=== PATIENT | male | born 1950 | race Caucasian/White ===

== ENCOUNTER 2023-12-08 16:15 | Outpatient (RCR) | payer MEDICARE, OTHER, SELFPAY | END 2023-12-08 23:59 | disposition home or self-care (01) | LOC: RPT 16:15 | PROVIDERS: ATTENDING PHYSICIAN Physician Assistant Medical | DX: R29.898 Other symptoms and signs involving the musculoskeletal system (principal); Z73.6 Limitation of activities due to disability; M54.50 Low back pain, unspecified; M54.6 Pain in thoracic spine | CPT/HCPCS: 97010; 97110; 97112; 97140; 97163; 97530 ==

== ENCOUNTER 2024-01-12 14:07 | Outpatient (RCR) | payer MEDICARE, OTHER, SELFPAY | END 2024-01-12 23:59 | disposition home or self-care (01) | LOC: RPT 14:07 | PROVIDERS: ATTENDING PHYSICIAN Physician Assistant Medical | DX: M54.50 Low back pain, unspecified (principal); M54.6 Pain in thoracic spine; R29.898 Other symptoms and signs involving the musculoskeletal system; Z73.6 Limitation of activities due to disability | CPT/HCPCS: 97010; 97110; 97112; 97140; 97530 ==

== ENCOUNTER 2024-01-14 13:46 | Outpatient (RCR) | payer MEDICARE, OTHER, SELFPAY | END 2024-01-14 23:59 | disposition home or self-care (01) | LOC: RPT 13:46 | PROVIDERS: ATTENDING PHYSICIAN Physician Assistant Medical | DX: R29.898 Other symptoms and signs involving the musculoskeletal system (principal); Z73.6 Limitation of activities due to disability; M54.6 Pain in thoracic spine | CPT/HCPCS: 97010; 97110; 97112; 97530 ==

== ENCOUNTER → 2024-03-01 16:53 | Outpatient (REF) | payer MEDICARE, OTHER, SELFPAY | LOC: RAD 16:53 | PROVIDERS: ATTENDING PHYSICIAN Internal Medicine Critical Care Medicine; FAMILY PHYSICIAN Physician Assistant Medical | DX: R06.09 Other forms of dyspnea (principal) | CPT/HCPCS: 71046 ==

== ENCOUNTER 2024-05-05 08:18 | Day surgery (SDC) | payer MEDICARE, OTHER, SELFPAY ==
[2024-05-05] VITALS (13 sets, daily range): BP systolic 116–151; BP diastolic 54–85; BMI 26.8
[2024-05-05 08:46] LABS: Hematocrit 42.1 % (39.0-52.0); Hemoglobin 14.3 g/dL (13.0-18.0); Mean Corpuscular Hgb 30.9 pg (27.0-31.0); Mean Corpuscular Volume 90.9 fL (80.0-94.0); Mean Platelet Volume 9.8 fL (7.4-10.4); Platelet Count 202 10^3/uL (130-400); Red Blood Cell Count 4.63 10^6/uL (4.70-6.10); Red Cell Dist. Width 12.4 % (11.5-14.5); White Blood Cell Count 5.2 10^3/uL (4.8-10.8)
[2024-05-05 09:04] LABS: Glucose - Point of Care 219 mg/dl (70-99)
--- NOTE | 2024-05-05 10:51 | ITS.CL.CATH ---
Document Photographer - Catheterization
Cardiac Catheterization
Procedure Report:
CARDIAC CATHETERIZATION REPORT
Date of Procedure: 05/05/2024
Referring: Miguel A Kerr MD, PhD
Indication: Worsening exertional angina in patient with known CAD
�
HEMODYNAMIC DATA
AO: 124/74
LV: 124/10
�
LEFT VENTRICULOGRAPHY: Normal left ventricular wall motion with EF 63%
�
CORONARY ANGIOGRAPHY
Dominance: Right
Left Main: Normal
LAD: The LAD is moderately calcified. There is 99% mid LAD stenosis with JEAN grade II flow due to competitive flow from the RCA to the distal LAD. The small to medium sized third diagonal branch has diffuse moderate disease
Circumflex: Trivial luminal disease
RCA: Large dominant mildly calcified vessel with focal 90% mid stenosis. The RPDA and RPL are both very large with no significant disease
�
Closure Device: None-the procedure was performed via the right radial artery. The Barrie's test was normal prior to the procedure.
�
Radiation (mGy): 216
DAP (cm2.Gy): 18.1
Fluoroscopy time: 6.9 minutes
�
CONCLUSIONS
1:�Normal left ventricular function with EF 63%
2:�Multivessel CAD as described-options include CABG x 2 (LAD, RPDA) versus multivessel PCI. Given the presence of diabetes mellitus, I believe CABG is a better option for this patient. Will ask CTS to provide an opinion and if patient amenable
scheduled for CABG. If after discussion with CTS the patient prefers PCI we can arrange multivessel PCI
�
�
Copy to: Miguel A Kerr MD, PhD, Rosie Kirk PA-C
�
Tab De Dios MD, [facility], [facility]
--- NOTE | 2024-05-05 14:08 | PTCARENOTE ---
Tonya Turner Machine Operator set up for PAT for blood work and CXR.
[2024-05-05 14:37] LABS: Glycohemoglobin (HgbA1c) 7.8 % (4.0-5.6)
== END 2024-05-05 14:08 | disposition home or self-care (01) ==
LOC: CATH 08:18
PROVIDERS: ATTENDING PHYSICIAN Internal Medicine Cardiovascular Disease; FAMILY PHYSICIAN Physician Assistant Medical; OTHER PHYSICIAN Internal Medicine
DX: I25.118 Atherosclerotic heart disease of native coronary artery with other forms of angina pectoris (principal); I35.8 Other nonrheumatic aortic valve disorders; E11.9 Type 2 diabetes mellitus without complications; I10 Essential (primary) hypertension; E78.00 Pure hypercholesterolemia, unspecified; Z79.82 Long term (current) use of aspirin; Z79.84 Long term (current) use of oral hypoglycemic drugs
CPT/HCPCS: 82962; 83036; 85027; 93458; C1894; Q9967

== ENCOUNTER → 2024-05-09 10:26 | Outpatient (REF) | payer MEDICARE, OTHER, SELFPAY | LOC: RCS 10:26 | PROVIDERS: ATTENDING PHYSICIAN Thoracic Surgery (Cardiothoracic Vascular Surgery); FAMILY PHYSICIAN Physician Assistant Medical | DX: I25.10 Atherosclerotic heart disease of native coronary artery without angina pectoris (principal); Z01.818 Encounter for other preprocedural examination | CPT/HCPCS: 71250; 93306 ==

== ENCOUNTER 2024-05-12 05:30 | Inpatient (IN) | payer MEDICARE, OTHER, SELFPAY ==
[2024-05-10 12:23] VITALS: BMI 27.2
[2024-05-10 13:25] LABS: INR 0.88; PT 12.4 Sec (11.4-14.6)
[2024-05-10 13:26] LABS: APTT 27.7 Sec (23.4-35.0)
[2024-05-10 13:30] LABS: % Immature Granulocytes 0.4 % (0-0.5); % Lymphocytes 16.9 % (20.5-51.1); % Monocytes 8.7 % (1.7-9.3); Absolute Basophils 0.1 10^3/uL (0-0.2); Absolute Eosinophils 0.2 10^3/uL (0-0.7); Absolute Lymphocytes 1.1 10^3/uL (1.2-3.4); Absolute Monocytes 0.6 10^3/uL (0.1-0.6); Absolute Neutrophils 4.7 10^3/uL (1.4-6.5); Hematocrit 40.1 % (39.0-52.0); Hemoglobin 14.3 g/dL (13.0-18.0); Mean Corp Hgb Conc. 35.7 g/dL (33.0-37.0); Mean Corpuscular Hgb 31.8 pg (27.0-31.0); Mean Corpuscular Volume 89.1 fL (80.0-94.0); Mean Platelet Volume 10.6 fL (7.4-10.4); Nucleated Red Blood Cells % 0 % (-); Platelet Count 222 10^3/uL (130-400); Red Cell Dist. Width 12.3 % (11.5-14.5); White Blood Cell Count 6.7 10^3/uL (4.8-10.8)
[2024-05-10 13:30] LABS: Urine Albumin Negative (Neg - Trace); Urine Bilirubin Negative (Negative); Urine Character Clear (Clear); Urine Color Yellow; Urine Glucose 1+ (Negative); Urine Ketone Negative (Negative); Urine Leukocyte Negative (Negative); Urine Nitrite Negative (Negative); Urine Occult Blood Negative (Negative); Urine Specific Gravity 1.015 (<1.030); Urine Urobilinogen Negative (Neg - 1+)
--- NOTE | 2024-05-10 13:31 | CM ---
Met with and Mrs. Aguirre in [facility]. He states prior to admission he resides with his spouse in a two story home with four steps to enter. He states he has to go up a full flight of steps to get to bedroom/full bathroom. He states he only has
the bathroom upstairs. He states prior to admission he was independent with ambulation and adls. He states he does not have any DME in the home. He states he has a prescription plan with [facility]. His spouse states she will be home
to assist in his care when he goes home The discharge plan is to return home with his spouse and a home visit by the Transitional Care Nurse when medically stable.
We reviewed pre-op and post-op routines. We reviewed the shower instructions. He has the soap, written instructions and the Cardiothoracic Surgery Educational Booklet. We also reviewed restrictions including sternal precautions and driving
restrictions. We discussed a home visit by the Transitional Care Nurse. He is agreeable to a home visit. The plan is for CABG on Sunday, May 12, 2024.
[2024-05-10 15:47] LABS: ALT (SGPT) 40 U/L (0-50); AST (SGOT) 29 U/L (17-59); Albumin 3.9 g/dl (3.5-5.0); Alkaline Phosphatase 66 U/L (38-126); Blood Urea Nitrogen 16 mg/dl (9-20); Calcium 8.9 mg/dl (8.4-10.2); Carbon Dioxide 27 mmol/L (22-30); Chloride 100 mmol/L (98-107); Direct Bilirubin 0.1 mg/dl (0.0-0.4); Estimated Creatinine Clearance 82 ml/min; Glucose 158 mg/dl (70-99); Potassium 4.4 mmol/L (3.5-5.1); Sodium 137 mmol/L (135-145); Total Bilirubin 0.3 mg/dl (0.2-1.3); Total Protein 6.3 g/dl (6.3-8.2); eGFR > 60.00
[2024-05-12] VITALS (17 sets, daily range): BP systolic 95–154; BP diastolic 55–83; BMI 24.2
[2024-05-12] MEDS: LOPRESSOR 25 MG PO (05:56)
[2024-05-12] MEDS: MAGNESIUM OXIDE 500 MG PO (05:56)
[2024-05-12] MEDS: PROTONIX 40 MG PO (05:56)
[2024-05-12] MEDS: BACTROBAN 2% OINTMENT 1 APPLIC NASAL ×2 (05:57→20:28)
--- NOTE | 2024-05-12 06:10 | PTCARENOTE ---
Pt admitted to room 2263. Pt confirmed 2 CHG showers at home and NPO status. Pt oriented to room. VS and weight obtained. Pt clipped, prepped, and wiped w/ CHG wipes. Admission questions completed. Home medications confirmed. ABO drawn and sent.
Pre-op meds administered. Pt Right BP 151/76 and Left BP 123/79. CTPA and Dr. Rivera aware. Pt took his vitamin D, fish oil, coenzyme Q10, multivitamin, and lisinopril on 05/10. CTPA aware. at bedside. Call rose within reach.
--- NOTE | 2024-05-12 06:19 | W.CVOR.SURPR ---
CVOR Surgeon Immed Pre Op
-
I have examined this patient prior to performance of the scheduled procedure.
The patient's condition is unchanged from the time of the dictated/written History and
Physical and the patient is able to undergo the scheduled procedure.
CABG x 2, ANJANA Clip, will plate sternum as well given his active lifestyle with hiking
[2024-05-12 07:26] LABS: ACT+ - POC 101 Seconds (82-134)
[2024-05-12 08:03] LABS: Urine Albumin Negative (Neg - Trace); Urine Bilirubin Negative (Negative); Urine Character Clear (Clear); Urine Color Yellow; Urine Glucose 2+ (Negative); Urine Ketone Negative (Negative); Urine Leukocyte Negative (Negative); Urine Nitrite Negative (Negative); Urine Occult Blood Negative (Negative); Urine Urobilinogen Negative (Neg - 1+)
[2024-05-12 09:02] LABS: ACT+ - POC 517 Seconds (82-134)
[2024-05-12 09:20] LABS: B.E. - POC 1.2 mmol/L; Glucose - POC 231 mg/dl (70-99); HCO3 - POC 25 mmol/L (21-28); Hematocrit - POC 37 % PCV (42-52); Hemodilution- POC No; Hemoglobin Calculated - POC 12.6; Ionized Calcium - POC 1.16 mmol/L (1.15-1.33); O2 Saturation %Calculated-POC 99.9 % (94-98); PCO2 - POC 38 mmHg (35-48); PO2 - POC 244 mmHg (83-108); POC Comment BASELINE; Potassium - POC 4.3 mmol/L (3.5-5.1); Sodium - POC 137 mmol/L (136-145); pH - POC 7.43 (7.35-7.45)
--- NOTE | 2024-05-12 09:21 | CM ---
Reviewed chart. Mr Aguirre is in the operating room today. Prior to admission he resides with his spouse in a two story home with four steps to enter. He has a full flight of steps to get to bedroom/full bathroom. He only has the one bathroom in the
home. Prior to admission he was independent with ambulation and adls. He does not have any DME in the home. He has a prescription plan with [employer] [facility]. His spouse will be home to assist in his care if needed. Medical work-up in
progress. The discharge plan is to return home with his spouse and a home visit by the Transitional Care Nurse when medically stable.
[2024-05-12 09:32] LABS: ACT+ - POC 605 Seconds (82-134)
[2024-05-12 09:46] LABS: B.E. - POC 3.3 mmol/L; Glucose - POC 206 mg/dl (70-99); HCO3 - POC 27 mmol/L (21-28); Hematocrit - POC 32 % PCV (42-52); Hemodilution- POC Yes; Hemoglobin Calculated - POC 10.8; Ionized Calcium - POC 0.98 mmol/L (1.15-1.33); PCO2 - POC 38 mmHg (35-48); PO2 - POC 386 mmHg (83-108); POC Comment CPB; Potassium - POC 5.6 mmol/L (3.5-5.1); Sodium - POC 136 mmol/L (136-145); pH - POC 7.46 (7.35-7.45)
[2024-05-12 09:55] LABS: ACT+ - POC 509 Seconds (82-134)
[2024-05-12 10:10] LABS: Glucose - POC 195 mg/dl (70-99); HCO3 - POC 26 mmol/L (21-28); Hematocrit - POC 34 % PCV (42-52); Hemodilution- POC Yes; Hemoglobin Calculated - POC 11.7; Ionized Calcium - POC 1.05 mmol/L (1.15-1.33); O2 Saturation %Calculated-POC 99.7 % (94-98); PCO2 - POC 39 mmHg (35-48); PO2 - POC 184 mmHg (83-108); POC Comment WARM; Potassium - POC 4.4 mmol/L (3.5-5.1); Sodium - POC 140 mmol/L (136-145); pH - POC 7.44 (7.35-7.45)
[2024-05-12 10:14] LABS: ACT+ - POC 104 Seconds (82-134)
[2024-05-12 10:18] LABS: B.E. - POC -1.1 mmol/L; Glucose - POC 156 mg/dl (70-99); HCO3 - POC 23 mmol/L (21-28); Hematocrit - POC 29 % PCV (42-52); Hemodilution- POC Yes; Hemoglobin Calculated - POC 9.9; Ionized Calcium - POC 1.32 mmol/L (1.15-1.33); O2 Saturation %Calculated-POC 99.9 % (94-98); PCO2 - POC 35 mmHg (35-48); PO2 - POC 270 mmHg (83-108); POC Comment POST; Potassium - POC 3.7 mmol/L (3.5-5.1); Sodium - POC 139 mmol/L (136-145); pH - POC 7.42 (7.35-7.45)
--- NOTE | 2024-05-12 11:08 | W.PN.CT.SURG ---
CT Surgery Operative Note
-
CARDIAC SURGERY OPERATIVE REPORT
Preoperative Diagnosis: Multivessel Coronary Artery Disease with near total Occlusion of the LAD and Diabetic
Postoperative Diagnosis: Same
Procedure(s) Performed:
1. Status trauma with aortic and right atrial cannulation
2. Left atrial appendage exclusion [35 mm clip]
3. Endoscopic harvest of the right lower extremity for vein
4. Coronary artery bypass grafting x 2 (In situ FLEMING to LAD, Ao to RSVG to RPDA)
5. Transesophageal echocardiography
6. Placement temporary ventricular pacing wire
7. Rigid sternal fixation (3 square screws with 14 mm screws x 12) and regional block by anesthesia
Date of Surgery: 05/12/2024
Comorbidities:
1. Multivessel coronary disease with near total occlusion of the LAD
2. Hyperlipidemia
3. Hypertension
4. Diabetes mellitus type 2 insulin-dependent
5. Glaucoma
6. Arthritis
7. Gout
8. Hard of hearing
Attending Surgeon: Luis Rivera MD, MS
Assistants: Shae Villasenor PA-C (present and necessary to first officer and flight instructor, endoscopic vein harvest, retraction, suction, exposure, suture management, and wound closure under my direction)
Anesthesiology: Caden Bah MD and Bettina Ray CRNA
Scrub and Circulating RNs: Cecile Atwood RN, Trung Babcock RN
Benefits Representative: Laverne Dawson CCP
Anesthesia: GETA
EBL: per perfusion records
Products: None, 1 bowl of cell saver scavenged from the field
CPB Time: 50 minutes
Aortic Cross Clamp Time: 44 minutes
Indication(s) for Procedures: This is a 74-year-old male who is otherwise healthy having angina equivalent chest tightness of the upper chest and neck. He was found to have multivessel coronary disease with a chronic total occlusion of the RCA with
collateralization. Given his diabetic status, he was referred to my office for consideration of coronary revascularization. We discussed his STS risk and the details of surgery. Shared decision making to move forward with coronary
revascularization.
Conduit(s) Quality:
FLEMING -good/taken as a thin pedicle, overall small size with good flow
RSVG -excellent/uniform in size, minimal thickness, minimal varicosities
Target(s) Quality:
RCA/PDA -excellent/large sized target accommodating a 1.75 to 2.0 mm probe, excellent flow with test dosing of antegrade revealing approximately 70 to 80 cc a minute of flow at a pressure of 80 mmHg. Flow probe assessment with excellent numbers and
low PI
LAD -small, average to marginal/atretic target barely able to accommodate a 1.0 mm probe, there is good visual flow in the LAD territory post revascularization and decent numbers on flow probe with acceptable PI.
Findings: His left ventricular ejection fraction preoperatively was normal at 60% with no regional wall motion abnormalities. Following surgery his EF remained the same and there was no new regional wall motion abnormalities. The FLEMING was harvested
in a thin pedicle fashion. Following bypass grafting, test dose cardioplegia was given down each distal and confirmed patency and hemostasis. Each distal was probed both proximally and distally to confirm disease and patency, respectively. Flow
probe was used to assess the grafts and found to be acceptable. His left atrial appendage was verified to be free of any thrombus or debris preoperatively and totally occlusive postoperatively. No [place] was placed. No inotropic support was
required. No blood products were transfused. He was sinus bradycardia following surgery.
Description of Procedure: The patient was taken to the operating room. Their identity and procedure to be performed were verified and they were positioned supine on the operating table. Induction via general anesthesia with endotracheal intubation
was performed and central venous access and arterial monitoring were inserted. A preoperative transesophageal echocardiogram was performed to assess cardiac function and valvular function. The patient was then prepped and draped from chin to feet in
a sterile fashion. A preoperative time-out was performed with all members of the team present. A midline chest incision was performed along with median sternotomy. Simultaneous endoscopic access of the right lower extremity for saphenous vein
harvest was obtained along with administration of an initial 5,000 units of IV heparin. A RulTract sternal retractor was positioned to exposure the left internal mammary bed. The mammary was harvested and found to have good flow. A bulldog clamp was
applied to the distal end of the mammary after dividing it. It was wrapped in a papaverine soaked RayTec and replaced back into the left hemithorax. The RulTract was exchanged for a median sternal retractor. The innominate vein was isolated. Full
heparinization was given (a total of 32,000 units). We created a pericardial well. The aortic cannulation site was chosen where it was soft, pliable, and free of calcium. Cannulation was performed with an arterial cannula in the ascending aorta and
a triple-stage venous cannula through the right atrial appendage. The arterial cannula line had an appropriate bounce and correlating pressures with test dosing. Next, a root vent/antegrade cannula was inserted into the ascending aorta. The ACT was
confirmed to be over 400 and retrograde autologous priming was performed before commencing cardiopulmonary bypass. The pulmonary artery was away from the aorta to facilitate a clamp site. The aortic cross-clamp was placed after decreasing
the flow on the bypass and mean arterial pressure. A total of 1000L initial dose of antegrade Del-Nido cardioplegia solution was given and planned for re-dosing every 75 minutes as necessary. There was rapid electro-mechanical arrest of the heart at
300 cc of cardioplegia. The left ventricle was observed for distention on echocardiogram and manual palpation. Cold slush was placed into a sponge and topically on the RV while we systemically cooled to 34 degrees centigrade. Once arrested, the
heart was then medialized left atrial appendage was clipped with a 35 mm device.
I positioned the heart to expose the distal right coronary at the posterior descending artery. A douglas blade was used to expose the coronary and perform the arteriotomy. Coronary Puentes scissors were used to enlarge the incision. The saphenous vein
was trimmed and beveled to an appropriate size. The distal anastomosis was performed using 7-0 prolene in an end-to-side fashion. Antegrade cardioplegia was administered into the graft. Appropriate hemostasis and flow were confirmed. A suitable
target on the mid/distal left anterior descending was identified. We dissected and prepared the distal target in a similar fashion. It was an extremely small and atretic vessel. We retrieved the FLEMING from the chest and created a pericardial
opening while being cognizant of the phrenic nerve to facilitate the course of the mammary. The distal end of the mammary was prepped and beveled to size. We verified orientation and length of the JAVIER and found brisk flow. An end-to-side anastomosis
was created with a 8-0 prolene secured with a micro core knot device. We temporarily released the bulldog clamp on the mammary to inspect flow. Perfusion to the LAD territory was visualized and hemostasis was confirmed. The bull clamp was replaced
on the mammary. The heart was filled and the root was distended with antegrade cardioplegia to make final assessment of graft length and orientation. We created 1 aortotomy using a #11 blade then a 4.0mm aortic punch. The proximal anastomoses were
created in an end-to-side fashion using 6-0 prolene. At the the same time, we re-warmed to 36.5 degrees centigrade. The bulldog clamp was removed from the mammary. Temporary bipolar ventricular pacing wires were placed on the base of the right
ventricle. The patient was placed in a Trendelenburg position and flows on bypass were lowered. The aortic cross clamp was removed and flows were slowly brought back up. A 30-gauge needle was used to de-air the vein grafts. All bypass grafts were
inspected and were free from kinking or twisting. The distal and proximal anastomoses appeared hemostatic. Once transesophageal echocardiography appeared satisfactory for de-airing, the flows were temporarily lowered for root vent removal. After
verifying acceptable parameters, we initiated weaning from cardiopulmonary bypass. Once we were off cardiopulmonary bypass, the venous cannula was clamped and removed. A test dose of protamine was administered and the patient was monitored for any
adverse reaction before resuming protamine. Once half of the protamine dose was delivered, pump suckers were turned off and the systolic blood pressure was lowered for aortic decannulation. The aortic cannula was removed and pursestrings were tied
down. All cannulation sites were oversewn with a 4-0 prolene. The mammary bed was inspected and hemostasis was confirmed. Once the mediastinum was hemostatic, 19Fr Zhen drain was placed in the left pleural cavity and two 24Fr Zhen drains were
placed within the pericardium. The sternum was approximated with 4 #7 single and 3 #8 double stainless steel wires. 3 sternal plates were also applied. Fascia was approximated with #1 vicryl suture. The subcutaneous, dermis and epidermis were
closed in layers in a running fashion. The skin wound was cleansed and dressed.
All instrument, sponge, and needle counts were confirmed to be correct x 2 at the end of the operation. The patient was transferred to the cardiac intensive care unit in critical but stable condition.
I, Dr. Luis Rivera, was present, scrubbed for, and performed all critical elements of this procedure.
Luis Rivera MD, MS
Cardiothoracic Surgeon
[facility]
This operative dictation was created using the [employer] dictation system. Please excuse any grammatical, typographical, or 'sound alike' errors
--- NOTE | 2024-05-12 11:15 | W.PN.UPDATE ---
Update Note
Progress Note Update
74 year old male electively admitted 05/12 fo rCABG due to twp vessel CAD with preserved EF.
IV fluids:
Crystalloid:�
U.O.:�
UF:�
Blood:� none
Wires:� bipolar v-wire
Inotropes:�
Pressors:�
Sedatives:�
�
NEURO: sedated on Precedex, pupils +2mm B/L
RESP: #8OT @24cm> 500/40%/14/5. Lungs clear B/L. 2 mediastinal (0cc on arrival) and L pleural (5cc on arrival) chest tubes to -20cm suction. +continuous air leak from pleural tube. Sanguineous drainage
CV: RRR +S1, S2, no S3, no�rub, no murmur. Dermabond to median sternotomy. RIJ cordis intact
ABD: round, soft, no BS
EXT: no edema, +2/4 DP pulses B/L, no femoral bruit, RLE LADAN wrap intact; left radial A-line intact
: [place] with clear yellow urine
�
A/P: POD #0 s/p CABG x 2 FLEMING-LAD; SVG-RPDA, left atrial appendage exclusion number 35 mm clip. Rigid sternal fixation
JAYE: EF�
- wean and extubate
- Left pleural chest tube insertion site reinforced, connections secure>air leak persists. Monitor for PTX
# CAD
- will require ASA/Plavix, statin (Crestor), beta-jonatan
# HTN
- IV Cardene, transition to ACEi when tolerating orals
�
# acute surgical blood loss anemia-expected
- trend CBC
�
# T2DM (A1C 7.8)
- insulin infusion x 48h
- resume home Metformin and glipizide on POD #2
- may benefit from SGLT2i
�
# Hyperlipidemia
- resume�[place] 3
# Glaucoma
- continue eye drops
[2024-05-12 11:17] LABS: Glucose - Point of Care 139 mg/dl (70-99)
[2024-05-12 11:25] LABS: B.E. -0.7 mmol/L; HCO3 24.2 mmol/L (21-28); Ionized Calcium 1.23 mMOL/L (1.15-1.33); O2 Saturation % 98.1 % (94-98); PCO2 40 mmHg (35-48); PO2 105 mmHg (83-108); Sodium 135 mMOL/L (136-145); pH 7.39 (7.35-7.45)
[2024-05-12 11:28] LABS: Mixed Venous O2 Saturation 70.1 %
[2024-05-12] MEDS: DILAUDID 0.5 MG IV (11:33)
[2024-05-12] MEDS: NOVOLOG FLEXPEN SC ×3 (11:33→14:51)
[2024-05-12] MEDS: NSS 500 IV (11:33)
[2024-05-12 11:34] LABS: Hematocrit 34.4 % (39.0-52.0); Hemoglobin 11.9 g/dL (13.0-18.0); INR 1.24; PT 15.9 Sec (11.4-14.6); Platelet Count 174 10^3/uL (130-400)
[2024-05-12] MEDS: NEURONTIN PO ×2 (11:34→15:00)
[2024-05-12] MEDS: ANCEF 10 IV ×2 (11:34)
[2024-05-12 11:35] LABS: APTT 28.7 Sec (23.4-35.0)
--- NOTE | 2024-05-12 11:36 | PN.DE.MGMTRT ---
Insulin Management
- -
05/12/2024: Diabetes management Consult
74 year old male electively admitted 05/12 fo CABG due to two vessel CAD with preserved EF.
Now s/p CABG x2. PMH: MVCAD, HTN, HLD, T2DM, Glaucoma, Arthritis, Gout and Hard of hearing.
was taking Metformin 500mg BID and Glipizide 2.5mg daily. A1C 7.8%, Cr 0.7, eGFR >60
Currently on Glycemic protocol x 48h post-op for optimal glucose control.
Will follow and resume OP regimen at increased dose of Metformin 1000 mg BID and glipizide 2.5mg BID in addition to Farxiga 10mg daily
Diabetes History
- -
Type of Diabetes: 2
Pre-Admission Diabetes Regimen
Insulin Pump Settings
IP Diabetes Regimen
05/12/24
11:07
POC Glucose 139 H
Patient Education
--- NOTE | 2024-05-12 11:39 | PTCARENOTE ---
Received pt from [facility], Intubated and sedated on the vent. Settings per anesthesia. SIMV 40 % Rate 14 tv 500 psv 5 peep 5 spo2 98%. # 8 ETT at 24 cm . SB on monitor 50's. Epicardial V wire inplace. Chest tubes x 3 to - 20 cm suction. Air leak
present in Lt pleural CT. Dressing taken down by CT VOLTAGE INSPECTOR and reinforced, air leak remains. Abdomen soft with hypoactive bowl sounds. charles draining clear yellow urine. RT leg Scout wrap intact. Pressure dressing to RT upper thigh. DP pulses
palpable. RT IJ cordis with slick intact. Lt radial A line transducing. Lines leveled, recalibrated and flushed. Drips infusing on hand off as follows, Levophed, Insulin, Precedex. See flow sheet for totals.
[2024-05-12 11:47] LABS: Blood Urea Nitrogen 12 mg/dl (9-20); Estimated Creatinine Clearance 91 ml/min; Glucose 133 mg/dl (70-99); Magnesium 3.6 mg/dl (1.6-2.3)
[2024-05-12 11:59] LABS: Glucose - Point of Care 200 mg/dl (70-99)
--- NOTE | 2024-05-12 12:50 | PTCARENOTE ---
Awakes spontaneously, following commands, but still drowsy. not over breathing vent at this time,
[2024-05-12] MEDS: CRESTOR PO (12:55)
[2024-05-12] MEDS: VITAMIN D3 (cholecalciferol) PO (12:55)
[2024-05-12 13:00] LABS: Glucose - Point of Care 146 mg/dl (70-99)
--- NOTE | 2024-05-12 13:31 | PTCARENOTE ---
1300 Mediastinal chest tube atrium now with continuous air leak noted. CT PA notified and in to assess.
--- NOTE | 2024-05-12 13:53 | CON.INTV ---
Consultation
Consultation Request
Date/Time Consultation Requested: 05/12/24
Date/Time Consultation Performed: 05/12/24
Performing Provider: Rolando
Reason for Consultation: CVICU
Medical History
-
History of Present Illness:
Patient is a 74-year-old male with previous history of diabetes, hypertension, hyperlipidemia with recent complaints of chest tightness and burning sensation, evaluated as an outpatient for CAD. Had cardiac catheterization demonstrating significant
proximal LAD disease and proximal lesion in RCA. Underwent elective CABG x 2 on 05/12/2024 and sent to CVICU for further management.
Denies prior known history of lung disease, reported non-smoker.
Past Medical History
Past Medical History: Other (see list below)
Social History
Tobacco: Non-smoker
Alcohol: None
Drug: None
Family History
Family History: Reviewed & Not Pertinent
Allergies / Home Medications
Allergies
Allergy/AdvReac Type Severity Reaction Status Date / Time
Penicillins Allergy Unknown Verified 05/08/24 10:43
pollen extracts Allergy seasonal Verified 05/08/24 10:43
allergies
Home Medications
�Medication �Instructions �Recorded �Confirmed �Last Taken �Type
aspirin 81 mg tablet,delayed 81 mg PO DAILY 03/26/17 05/12/24 05/11/24 History
release
coenzyme Q10 100 mg capsule 100 mg PO DAILY 03/26/17 05/12/24 05/10/24 History
lisinopril 10 mg tablet 10 mg PO DAILY 03/26/17 05/12/24 05/10/24 History
metformin 500 mg tablet,extended 500 mg PO BID 03/26/17 05/12/24 05/11/24 History
release 24hr (osmotic)
phhylnep-rtb-lndgi 200 mcg-lycop 1 ea PO DAILY 03/26/17 05/12/24 05/10/24 History
175 mcg-lutei 250 mcg-herb 178
tablet (Justus Multivitamin For Men)
omega 0-uvj-tkh-fish oil 300 2 ea PO BID 03/26/17 05/12/24 05/10/24 History
mg-1,000 mg capsule (Fish Oil)
cholecalciferol (vitamin D3) 50 50 mcg PO DAILY 05/05/24 05/12/24 05/10/24 History
mcg (2,000 unit) capsule (Vitamin
D3)
glipizide 2.5 mg tablet, extended 2.5 mg PO DAILY 05/05/24 05/12/24 05/11/24 History
release 24 hr
latanoprost 0.005 % eye drops 1 drp ophthalmic (eye) QPM 05/05/24 05/12/24 05/11/24 History
metoprolol succinate 25 mg 12.5 mg PO QPM 05/05/24 05/12/24 05/11/24 History
tablet,extended release 24 hr
nitroglycerin 0.4 mg sublingual 0.4 mg sublingual [id number] PRN 05/05/24 05/08/24 Unknown Rx
tablet chest pain #25 tabs
rosuvastatin 10 mg tablet (Crestor) 20 mg (2 x 10 mg) PO DAILY #0 tabs 05/05/24 05/12/24 05/11/24 Rx
ascorbate calcium-bioflavonoid 1 tab PO DAILY 05/08/24 05/12/24 05/11/24 History
1,000 mg-200 mg tablet (Malini-C
with Bioflavonoids)
magnesium glycinate 1 cap PO BID PRN for leg cramps 05/08/24 05/12/24 05/10/24 History
Review of Systems
-
Unable to Obtain full review of systems at this time due to: Patient Intubation
History Source: Transfer Record
Vitals / Labs / Diagnostic Testing
Vital Signs
Temp Pulse Resp BP Pulse Ox
98.0 F 60 14 102/62 97
05/12/24 13:45 05/12/24 13:00 05/12/24 13:00 05/12/24 13:00 05/12/24 13:00
Lab Data
05/12/24 11:01
Laboratory Results
05/12/24
11:01
PT 15.9 H
INR 1.24
APTT 28.7
pH 7.39
pCO2 40
pO2 105
HCO3 24.2
O2 Delivery Level
Microbiology
05/10/24 12:33 Nose MRSA Screen - Final
No Methicillin Resistant Staphylococcus aureus isolated.
Diagnostic Testing:
Physical Exam
-
HEENT: Normocephalic, Anicteric and Moist Mucous Membranes
Cardiovascular: S1/S2 and Regular Rhythm
Respiratory: Clear, Non-Labored Respirations and Other (ETT/chest tubes)
GI: Soft, Non Distended and Non Tender
Neurology: Awake, Alert and Other (intubated, nonverbal, can nod yes/no)
Skin: Warm, Dry and Good Color
General: Comfortable and Other (NAD)
Assessment
-
Patient is a 74-year-old male with previous history of diabetes, hypertension, hyperlipidemia with recent complaints of chest tightness and burning sensation, evaluated as an outpatient for CAD. Had cardiac catheterization demonstrating significant
proximal LAD disease and proximal lesion in RCA. Underwent elective CABG x 2 on 05/12/2024 and sent to CVICU for further management.
CAD s/p CABx 2 05/12/24
Perioperative mechanical ventilation
Postop anemia, mild
Hyperglycemia
Conditions present prior to admission
Hypertension
Hyperlipidemia
Diabetes type 2
CAD
Seasonal allergies
Gallstones
Glaucoma
Back pain
Prior history of 7 rib fractures and punctured lung in 2015
Urinary frequency
Arthritis
Gout
Hard of hearing with bilateral hearing aids
Bladder repair
Plan
S/p cab POD #0
Titrate off pressors per protocol
ECHO reviewed with normal function
PA catheter readings reviewed
Management of chest tubes per primary service
Intubated/sedated, initiate SAT when able
Pain control
RASS goal of 0 to -1
Intubated for procedure, SBT trial when patient able to spontaneously breath
Current vent settings: CPAP wean, tolerating
ABG(s) reviewed/adequate
CXR with no obvious opacities/infiltrates, ETT in good position, lines/tubes in place
Extubate per protocol
Maintain supplement oxygen as needed
No prior history of pulmonary disease
No prior PFTs for review
Can add nebulizers if needed
Aspiration precautions
Encouraged incentive spirometry, OOB/ambulation/early mobility
Advance diet as tolerated following extubation
GI prophylaxis if indicated for mechanical ventilation >48 hours
Monitor critical I/O's
Avendano/chest tube output
Hb/platelets postoperatively stable
Trend CBC for now
Can transfuse if indicated for Hb <7, plt <50 in surgical patients
DVT prophylaxis including SCDs
Insulin protocol initiated and ongoing
DM history noted
Transition to SQ/off as indicated per team
We will follow
Diagnostic Data
Chest X-Ray: 05/12/24- Stable appearance of the support lines and tubes. No discrete pneumothorax.
05/10/24- No acute cardiopulmonary process.
CT Scan: CHEST 05/09/24- 1. No acute findings within the chest.
2. Normal caliber thoracic aorta. Mild to moderate calcified plaque within the distal arch and descending thoracic aorta.
3. Extensive coronary artery calcific indications.
4. Multiple old, healed right rib fractures.
Echo: 05/09/24- Normal biventricular size and systolic function without regional wall motion abnormality. Aortic sclerosis without stenosis. Compared to previous echo 10/07/21, the liver finding was no evaluated as it was on the prior study.
PFT's:
Reports and relevant images were personally reviewed.
Critical Care time 50 mins -- The patient is admitted for acute critical illness for the treatment of vital organ failure and/or prevention of further life-threatening conditions. Total care includes time spent in review of history, physical exam,
medications, hemodynamic/ventilator parameters, laboratory data, imaging and discussion with house staff, pharmacy, respiratory therapy, front tender, and nursing.
[2024-05-12 13:59] LABS: Glucose - Point of Care 119 mg/dl (70-99)
--- NOTE | 2024-05-12 14:14 | PTCARENOTE ---
Pt awake consistently, able to move all extremities and lift head off pillow, along with follow commands. CPAP trial initiated by RT. Pt washed with CHG wipes at this time , turned and back rubbed with lotion. Pt tolerated w/o issue. Will obtain
ABG per protocol
--- NOTE | 2024-05-12 14:38 | W.PN.UPDATE ---
Update Note
Progress Note Update
Pleural and Mediastinal drainage containers changed with resolution of air leaks.
--- NOTE | 2024-05-12 14:43 | PTCARENOTE ---
Both chest tube atruims changed out by CT PA, all suction tubing also exchanged at this time. No air leaks present after change out.
[2024-05-12] MEDS: TYLENOL PO (14:50)
[2024-05-12 14:52] LABS: Ionized Calcium 1.16 mMOL/L (1.15-1.33); pH 7.38 (7.35-7.45)
[2024-05-12 14:57] LABS: Hematocrit 38.2 % (39.0-52.0); Hemoglobin 13.3 g/dL (13.0-18.0); Platelet Count 244 10^3/uL (130-400)
[2024-05-12 14:57] LABS: Glucose - Point of Care 118 mg/dl (70-99)
[2024-05-12] MEDS: PACERONE PO (15:00)
[2024-05-12 15:06] LABS: B.E. -0.8 mmol/L; HCO3 24.3 mmol/L (21-28); PCO2 41 mmHg (35-48); PO2 184 mmHg (83-108); Potassium 3.6 mMOL/L (3.5-5.1)
[2024-05-12] MEDS: CALCIUM CHLORIDE 10% SYRINGE 50 MG IV (15:14)
[2024-05-12] MEDS: KCL 50 IV ×2 (15:14→17:58)
[2024-05-12] MEDS: CALCIUM CHLORIDE 10% SYRINGE 50 ML IV (15:14)
--- NOTE | 2024-05-12 15:28 | PTCARENOTE ---
Extubated to 6 L NC, at 1512. Pulse ox 98% Able to preform IS to 1000. updated and at bedside.
[2024-05-12] MEDS: ROXICODONE 5 MG PO ×2 (15:33→22:41)
[2024-05-12] MEDS: LOW STRENGTH ASPIRIN 81 MG PO (15:33)
--- NOTE | 2024-05-12 15:50 | RESPNOTE ---
1510-- extubated to 6 liter NC at this time without complications. SAT 97%, IS done 1250mL
[2024-05-12 16:04] LABS: Glucose - Point of Care 126 mg/dl (70-99)
[2024-05-12] MEDS: DILAUDID 0.25 MG IV ×2 (16:49→20:28)
--- NOTE | 2024-05-12 17:26 | W.PN.CD ---
Addendum entered and electronically signed by Bo Bhatia MD 05/12/24 19:52:
I saw and examined the patient.
The MACHINE CLOTHING MAN's note was reviewed and I agree with the note.
Comment: He is extubated and awake. He has some pain in his shoulders but otherwise feels reasonably well considering everything he went through today. He does have some chest pain when he takes a deep breath. Attributing it to his tubes. On
exam he is awake and alert, regular rate and rhythm normal S1-S2 anteriorly he is clear to auscultation. Sternal wound clean dry and intact. Agree with postoperative care day 0 plan. Will continue to monitor and optimize medical therapy
throughout its course.
Original Note:
Today's Communication / Plan
-
-Close post-op monitoring and care per CVICU/CT surgery protocol
-ASA, statin, BB
-Follow tele, BP's
Impression / Plan
-
74 y/o male (patient of Dr. Kerr) with CAD, hypertension, dyslipidemia, and DM who was recently seen to have multivessel CAD by cath and is now s/p CABG.
Multivessel CAD:
-s/p coronary artery bypass grafting x 2 (In situ FLEMING to LAD, Ao to RSVG to RPDA) and ANJANA exclusion with Dr. Rivera 05/12/24.
-post-op EKG stable in NSR. Tele SR
-CXR: Stable appearance of the support lines and tubes. No discrete pneumothorax.
-CT's, charles in place
-JAYE EF 50%
-ASA, statin, BB
HTN:
-monitor post-op
-on ACEI and BB as OP
DM2:
-on insulin drip post-op
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
Dyslipidemia:
-continue rosuvastatin
Physical Exam
Vital Signs/Labs
Vital Signs
Temp Pulse Resp BP Pulse Ox
99.1 F 76 21 98/55 97
05/12/24 16:52 05/12/24 16:52 05/12/24 16:52 05/12/24 16:00 05/12/24 16:52
05/11/24 05/12/24 05/13/24
06:59 06:59 06:59
Actual Weight 74.2 kg 72.2 kg
05/12/24 14:41
05/12/24 11:01
PT 15.9 Sec (11.4-14.6) H 05/12/24 11:01
INR 1.24 05/12/24 11:01
APTT 28.7 Sec (23.4-35.0) 05/12/24 11:01
Magnesium 3.6 mg/dl (1.6-2.3) H 05/12/24 11:01
Physical Exam
Constitutional: No acute distress
EENT: Anicteric
Cardiovascular: Rhythm & rate is regular
Respiratory: Respiratory effort normal, Lungs clear to auscul. and Other (On O2 by NC)
Neuro/Psych: AO x 3
Other: Skin (midsternal incision site appears well-approximated )
Data Reviewed
-
Date of Service: May 12, 2024
EKG: Tracing Personally Visualized and interpreted (NSR) and Other (SR)
[2024-05-12] MEDS: XALATAN OPHTHALMIC SOLUTION OPHTH (17:55)
[2024-05-12] MEDS: ANCEF 5 IV (17:55)
[2024-05-12 18:02] LABS: Glucose - Point of Care 120 mg/dl (70-99)
[2024-05-12] MEDS: OFIRMEV 100 IV (18:47)
[2024-05-12 20:08] LABS: Glucose - Point of Care 126 mg/dl (70-99)
[2024-05-12] MEDS: SENOKOT-S 1 TABLET PO (20:28)
[2024-05-12] MEDS: ZOFRAN 4 MG IV (20:37)
--- NOTE | 2024-05-12 20:40 | PTCARENOTE ---
Report received from DIONI Ramirez. Walking rounds done. Pt drowsy but awakens easily to voice. Oriented to person, place, purpose, time. Speech clear, moves extremities equally. On 2L/NC. Sats 96-97%. BBS present. Decreased to B bases. CDB encouraged.
Pt in SR, rate 60-70's. L radial A line present. CVP transduced via RIJ cordis/SLIC catheter. For pulse and wound assessments, see flowsheets. R groin puncture site remains soft. Pressure dressing and chris wrap remain intact, dry. PA at bedside to
examine pt. CT x 3. All to suction, -20 cm. No air leak present. Bloody drainage. Q1 hr output checks. Belly soft, nontender. Hypoactive BS x 4. Pt had fleeting nausea after Dilaudid 0.25 mg IV given for B shoulder pain. Zofran 4 mg IV given at
2036. Avendano catheter intact, draining clear, yellow urine. Hourly urine and CT outputs recorded. Glycemic protocol maintained. Ongoing plan of care.
[2024-05-12 21:02] LABS: Glucose - Point of Care 116 mg/dl (70-99)
[2024-05-12 22:17] LABS: Glucose - Point of Care 111 mg/dl (70-99)
[2024-05-12] MEDS: PACERONE 200 MG PO (22:37)
[2024-05-12] MEDS: NEURONTIN 100 MG PO (22:37)
[2024-05-12] MEDS: FLOMAX 0.4 MG PO (23:20)
--- NOTE | 2024-05-12 23:25 | PTCARENOTE ---
Roxicodone 5 mg po given for 6/10 B shoulder pain. Flomax 0.4 mg po given as ordered. Pt remains neuro intact, more awake. Remains in SR. O2 Sats 96-97% on 2L/NC.
[2024-05-12 23:26] LABS: Glucose - Point of Care 111 mg/dl (70-99)
[2024-05-13] VITALS (24 sets, daily range): BP systolic 104–152; BP diastolic 57–94; PULSE 67; O2SAT 97–98; BMI 24.9
[2024-05-13] MEDS: TYLENOL 1000 MG PO ×4 (00:14→22:10)
[2024-05-13 00:19] LABS: Glucose - Point of Care 99 mg/dl (70-99)
--- NOTE | 2024-05-13 00:25 | PTCARENOTE ---
BP via A-line 140's systolic. MAP upper 80's. Cardene gtt started at 2.5 mg/hr. BP down to 110-120's/50's, MAPs 70's. Pt turned onto R side. CDB and IS performed.
[2024-05-13 02:09] LABS: Glucose - Point of Care 116 mg/dl (70-99)
[2024-05-13] MEDS: DILAUDID 0.25 MG IV ×2 (02:22→22:10)
[2024-05-13] MEDS: ANCEF 5 IV ×2 (02:22→10:16)
--- NOTE | 2024-05-13 02:30 | PTCARENOTE ---
Sats 92-93% on 2L/NC. Pt c/o 11/21 B shoulder pain. Dilaudid 0.25 mg IV given. CDB and IS done with pt. O2 increased to 4L/NC. O2 sats increased to 93-94%.
[2024-05-13 03:45] LABS: Glucose - Point of Care 110 mg/dl (70-99)
[2024-05-13 03:57] LABS: Hematocrit 35.1 % (39.0-52.0); Hemoglobin 12.1 g/dL (13.0-18.0); Mean Corp Hgb Conc. 34.5 g/dL (33.0-37.0); Mean Corpuscular Hgb 31.5 pg (27.0-31.0); Mean Corpuscular Volume 91.4 fL (80.0-94.0); Mean Platelet Volume 10.1 fL (7.4-10.4); Platelet Count 186 10^3/uL (130-400); Red Blood Cell Count 3.84 10^6/uL (4.70-6.10); Red Cell Dist. Width 12.7 % (11.5-14.5); White Blood Cell Count 16.3 10^3/uL (4.8-10.8)
[2024-05-13 04:10] LABS: Blood Urea Nitrogen 17 mg/dl (9-20); Calcium 8.5 mg/dl (8.4-10.2); Carbon Dioxide 22 mmol/L (22-30); Chloride 108 mmol/L (98-107); Estimated Creatinine Clearance 80 ml/min; Glucose 107 mg/dl (70-99); Magnesium 2.1 mg/dl (1.6-2.3); Potassium 4.7 mmol/L (3.5-5.1); Sodium 141 mmol/L (135-145); eGFR > 60.00
--- NOTE | 2024-05-13 04:32 | W.PN.CT ---
Today's Communication / Plan
-
-pod #1
-no issues overnight
-drips: Insulin, Cardene 2.5
-CT output: 2 meds 95/180, L pleur 65/160 in 12/24 hrs, no air leak in either CTs
-deline
-continue insulin
-d/c Avendano (gave Flomax x1 for hx urinary retention/frequency/suspected BPH)
-current meds (ASA, Plavix, Lopressor, Amio, Protonix, Crestor, Feosol, Farxiga to start 05/14)
-encourage IS, OOB
Assessment / Plan
-
- s/p CABG x 2 (In situ FLEMING to LAD, Ao to RSVG to RPDA); Left atrial appendage exclusion [35 mm clip] by Dr. Rivera on 05/12/24, pod #1
- intraop JAYE: LVEF 60% pre and postop with no no regional wall motion abnormalities
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
- Hyperlipidemia
- Hypertension
- Diabetes mellitus type 2 insulin-dependent
- Glaucoma
- Arthritis
- Gout
- Hard of hearing
- Urinary frequency, hx bladder repair
- Hx of 7 rib fractures/punctured lung/reduced lung capacity
- Acute postop blood loss anemia - stable without transfusion
- Acute postop atelectasis
- Acute postop hypovolemia with subsequent hypervolemia
- Suspected acute postop pericarditis/+rub
Discussed patient care with: Nursing and Care Team
Subjective
-
Date of Service: May 12, 2024
Objective Data
-
Lab Results
05/12/24 14:41
05/12/24 11:01
PT 15.9 Sec (11.4-14.6) H 05/12/24 11:01
INR 1.24 05/12/24 11:01
APTT 28.7 Sec (23.4-35.0) 05/12/24 11:01
Vital Signs
Vital Signs
Temp Pulse Resp BP Pulse Ox
99.5 F 73 17 128/59 96
05/12/24 20:00 05/12/24 22:37 05/12/24 22:00 05/12/24 22:37 05/12/24 22:00
CT Intake/Output/Weight
05/12/24 05/12/24 05/13/24
06:59 18:59 06:59
Intake Total 409.5 / 503.1 93.6 / 503.1
Output Total 565 / 760 195 / 760
Balance -155.5 / -256.9 -101.4 / -256.9
SaO2: 96
Physical Exam
-
General: Awake and AOx3
Cardiovascular: Regular rate & rhythm, No Murmurs and Rub
Respiratory: Decreased Breath Sounds
Sternum: Stable
Incision: Clean, Dry, Intact and Other (R groin with soft hematoma and chris wrap)
Extremities: No Edema (2+ DPs b/l)
Abdomen: soft, nontender, nondistended, + bowel sounds
Data Reviewed
-
Lab Results: Results Reviewed
Medications: Active Meds Reviewed
Chest X-Ray: Report Reviewed and Image Reviewed
ECG: Report Reviewed and Image Reviewed
[2024-05-13 06:01] LABS: Glucose - Point of Care 104 mg/dl (70-99)
--- NOTE | 2024-05-13 06:06 | PTCARENOTE ---
Slic catheter d/c'ed per order and per protocol. L radial A line d/c'ed per protocol. Avendano d/c'ed at 0600.
[2024-05-13] MEDS: ROXICODONE 5 MG PO ×4 (06:22→20:02)
[2024-05-13] MEDS: NOVOLIN R INSULIN INFUSION 100 IV ×2 (06:28→23:53)
--- NOTE | 2024-05-13 07:09 | PTCARENOTE ---
Pt helped up to chair at 0615 with 2 RNs. Mild dizziness. Normotensive with SBP 130's. Remained in SR in the 80's. Sats 95-96% on 4L/NC. Roxicodone 5 mg and Tylenol 1 GM po given for 6-7/10 sternal and B shoulder pain.
[2024-05-13] MEDS: VITAMIN C 500 MG PO (07:48)
[2024-05-13] MEDS: NEURONTIN 100 MG PO ×3 (07:48→22:09)
[2024-05-13] MEDS: PROTONIX 40 MG PO (07:48)
[2024-05-13] MEDS: LOW STRENGTH ASPIRIN 81 MG PO (07:48)
[2024-05-13] MEDS: PLAVIX 75 MG PO (07:48)
[2024-05-13] MEDS: CRESTOR 20 MG PO (07:49)
[2024-05-13] MEDS: FEOSOL 325 MG PO (07:49)
[2024-05-13] MEDS: LOPRESSOR 12.5 MG PO ×2 (07:49→19:56)
[2024-05-13] MEDS: PACERONE 200 MG PO ×3 (07:49→22:09)
[2024-05-13] MEDS: LIDOCAINE 4% PATCH 1 PATCH TOPICAL (07:49)
[2024-05-13] MEDS: VITAMIN D3 (cholecalciferol) 50 MCG PO (07:49)
[2024-05-13] MEDS: SENOKOT-S 1 TABLET PO ×2 (07:49→20:01)
[2024-05-13] MEDS: BACTROBAN 2% OINTMENT 1 APPLIC NASAL ×2 (07:50→19:56)
[2024-05-13 07:58] LABS: Glucose - Point of Care 133 mg/dl (70-99)
--- NOTE | 2024-05-13 08:00 | PTCARENOTE ---
Assumed care of patient from hypo dipper RN. AAO x 3 sitting up in the chair. SR on monitor. Epicardial wire insulated. 4 L NC pulse ox 94%, IS to 750. Chest tubes x 3 to - 20 cm suction. No air leak or crepitus noted. Abdomen soft and non
tender. Hypoactive bowel sounds noted t/o. States hes passing flatus. Rt groin soft, little tenderness noted on palpation. Rt knee incision c,d,i. Pulses palpable. Sternal insicion well approximated with surgical glue. Insulin drip per
glycemic protocol. Plan for day discussed.
--- NOTE | 2024-05-13 09:06 | W.PN.INTV ---
Today's Communication / Plan
Recommendations
Doing well post extubation, no complaints
Off pressors, chest tube discontinuation per team
Remains on insulin IV protocol, transition to SQ
Can likely transfer to tele once off gtts
Otherwise encouraged OOB, PT/IS
Assessment
-
Patient is a 74-year-old male with previous history of diabetes, hypertension, hyperlipidemia with recent complaints of chest tightness and burning sensation, evaluated as an outpatient for CAD. Had cardiac catheterization demonstrating significant
proximal LAD disease and proximal lesion in RCA. Underwent elective CABG x 2 on 05/12/2024 and sent to CVICU for further management.
CAD s/p CABx 2 05/12/24
Perioperative mechanical ventilation
Postop anemia, mild
Hyperglycemia
Conditions present prior to admission
Hypertension
Hyperlipidemia
Diabetes type 2
CAD
Seasonal allergies
Gallstones
Glaucoma
Back pain
Prior history of 7 rib fractures and punctured lung in 2015
Urinary frequency
Arthritis
Gout
Hard of hearing with bilateral hearing aids
Bladder repair
Plan
S/p cab POD #1
Off pressors per protocol
ECHO reviewed with normal function
Management of chest tubes per primary service
Pain control
RASS goal of 0 to -1
Intubated for procedure, extubated and doing well
ABG(s) reviewed/adequate
CXR with no sign changes
Maintain supplement oxygen as needed
No prior history of pulmonary disease
No prior PFTs for review
Can add nebulizers if needed
Aspiration precautions
Encouraged incentive spirometry, OOB/ambulation/early mobility
Advance diet as tolerated following extubation
GI prophylaxis if indicated for mechanical ventilation >48 hours
Monitor critical I/O's
Avendano/chest tube output
Hb/platelets postoperatively stable
Trend CBC for now
Can transfuse if indicated for Hb <7, plt <50 in surgical patients
DVT prophylaxis including SCDs
Insulin protocol initiated and ongoing
DM history noted
Transition to SQ/off as indicated per team
Diagnostic Data
Chest X-Ray: 05/12/24- Stable appearance of the support lines and tubes. No discrete pneumothorax.
05/10/24- No acute cardiopulmonary process.
CT Scan: CHEST 05/09/24- 1. No acute findings within the chest.
2. Normal caliber thoracic aorta. Mild to moderate calcified plaque within the distal arch and descending thoracic aorta.
3. Extensive coronary artery calcific indications.
4. Multiple old, healed right rib fractures.
Echo: 05/09/24- Normal biventricular size and systolic function without regional wall motion abnormality. Aortic sclerosis without stenosis. Compared to previous echo 10/07/21, the liver finding was no evaluated as it was on the prior study.
PFT's:
Reports and relevant images were personally reviewed.
Critical Care time 31 mins -- The patient is admitted for acute critical illness for the treatment of vital organ failure and/or prevention of further life-threatening conditions. Total care includes time spent in review of history, physical exam,
medications, hemodynamic/ventilator parameters, laboratory data, imaging and discussion with house staff, pharmacy, respiratory therapy, oil speculator, and nursing.
Subjective Dataa
Subjective Data
Date of Service:
Date of Service: May 13, 2024
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
Subjective:
Doing well, extubated and tolerated overnight
No new complaints
Remains on insulin gtt
Objective Data
Data Reviewed
Vital Signs / I&O / Oxygen:
Vital Signs
Temp Pulse Resp BP Pulse Ox
97.6 F 78 15 122/59 94
05/13/24 07:38 05/13/24 07:38 05/13/24 07:38 05/13/24 07:00 05/13/24 08:30
Intake and Output
05/12/24 05/13/24 05/14/24
06:59 06:59 06:59
Intake Total 727.1 / 727.1 370 / 370
Output Total 1105 / 1105
Balance -377.9 / -377.9 340 / 340
SaO2 [SIMV] 98
SaO2 94
Nasal Cannula flow liters per 4
minute
Physical Exam
General: Comfortable and Other (NAD)
HEENT: Normocephalic, Anicteric and Moist Mucous Membranes
Cardiovascular: S1-S2 and Regular Rhythm
Respiratory: Clear, Non-Labored Respirations and Chest Tube
GI: Soft, Non Distended and Non Tender
Neurology: Awake, Alert, Oriented and No Motor Deficits
Skin: Warm, Dry and Good Color
Labs/Micro/Reports
Lab Data
05/13/24 03:37
05/13/24 03:37
Laboratory Results
05/12/24 05/12/24
11: 14:41
PT 15.9 H
INR 1.24
APTT 28.7
pH 7.39 7.38
pCO2 40 41
pO2 105 184 H
HCO3 24.2 24.3
O2 Delivery Level
Microbiology
05/10/24 12:33 Nose MRSA Screen - Final
No Methicillin Resistant Staphylococcus aureus isolated.
[2024-05-13] MEDS: NOVOLOG FLEXPEN SC ×2 (09:35→12:16)
--- NOTE | 2024-05-13 09:35 | PTCARENOTE ---
Lt pleural chest tube removed as per order. Pt tolerated w/o issue. resting in bed after.
[2024-05-13] MEDS: NSS IV (10:16)
[2024-05-13 10:20] LABS: Glucose - Point of Care 113 mg/dl (70-99)
[2024-05-13 11:55] LABS: Glucose - Point of Care 83 mg/dl (70-99)
--- NOTE | 2024-05-13 12:17 | PTCARENOTE ---
Napping intermittently, pain well managed with Roxycodone. Oxygen lowered to 2 L pulse ox 97%. Assist x 1 oob to chair. Rt leg Scout removed. Rt groin soft and non tender on palpation. VSS. Assessment unchanged from prior.
--- NOTE | 2024-05-13 12:59 | PTCARENOTE ---
Pt with no void after 6 hours charles removal. Denies urge to void. Bladder scanned per protocol. Scanned for 80 ml. PO intake encouraged. CT SHANK SKINNER notified.
[2024-05-13] MEDS: FLEXERIL 5 MG PO (13:11)
[2024-05-13 14:22] LABS: Glucose - Point of Care 155 mg/dl (70-99)
[2024-05-13 16:26] LABS: Glucose - Point of Care 122 mg/dl (70-99)
--- NOTE | 2024-05-13 16:37 | PTCARENOTE ---
Pt remains w/o void at this time. Re bladder scanned at this time for [address] RECORD PRODUCER notified. Pt pain well managed at present. VSS. Assessment unchanged from prior./
[2024-05-13 17:17] LABS: Glucose - Point of Care 116 mg/dl (70-99)
[2024-05-13] MEDS: NOVOLOG FLEXPEN 4 UNITS SC (17:20)
[2024-05-13] MEDS: XALATAN OPHTHALMIC SOLUTION 1 DROP OPHTH (17:50)
[2024-05-13 18:35] LABS: Glucose - Point of Care 134 mg/dl (70-99)
[2024-05-13 20:11] LABS: Glucose - Point of Care 99 mg/dl (70-99)
--- NOTE | 2024-05-13 20:30 | PTCARENOTE ---
Patient received OOB in chair. Patient A+A+Ox3. No neurological deficits noted. Patient assisted to bed. No c/o headache, dizziness or lightheadedness. O2 2L via NC. SpO2 98%. Two chest tubes - Mediastinal x2 - Intact and patent - 35ml
serosanguineous drainage - No air leak. Chest tube dressing intact. Sinus Rhythm. Heart rate 60's. Blood pressure 142/67 ( 89). V-Wire insulated. No c/o chest pain, pressure or discomfort. Normoactive bowel sounds. No BM. No c/o nausea. No
vomiting. No urge to void at this time. Patient with no c/o back or flank pain. Sternal incision intact - Surgical adhesive - Open to air. Right groin puncture site intact. Right knee incision - Surgical adhesive - Open to air. Positive,
palpable pulses. Right I.J. Cordis. Insulin gtt - Glycemic Protocol. Assessment as documented.
[2024-05-13 22:02] LABS: Glucose - Point of Care 115 mg/dl (70-99)
--- NOTE | 2024-05-13 22:30 | PTCARENOTE ---
Patient voided 200 ml lula urine. Patient resting in bed. Assessment/Interventions as documented.
[2024-05-14] VITALS (20 sets, daily range): BP systolic 128–159; BP diastolic 56–76; BMI 25.2
[2024-05-14 00:01] LABS: Glucose - Point of Care 98 mg/dl (70-99)
[2024-05-14 02:07] LABS: Glucose - Point of Care 111 mg/dl (70-99)
[2024-05-14 04:06] LABS: Glucose - Point of Care 80 mg/dl (70-99)
[2024-05-14] MEDS: NSS 500 IV (04:10)
[2024-05-14] MEDS: ROXICODONE 5 MG PO ×2 (04:15→20:08)
--- NOTE | 2024-05-14 04:30 | PTCARENOTE ---
Patient A+A+Ox3. No neurological deficits noted. Patient voided 200 ml lula urine. [facility] bath and linens changed. Standing scale weight 75.2 kg. Patient back to bed. Assessment/Interventions as documented.
[2024-05-14 04:45] LABS: Hematocrit 33.2 % (39.0-52.0); Hemoglobin 11.4 g/dL (13.0-18.0); Mean Corp Hgb Conc. 34.3 g/dL (33.0-37.0); Mean Corpuscular Hgb 32.2 pg (27.0-31.0); Mean Corpuscular Volume 93.8 fL (80.0-94.0); Mean Platelet Volume 10.3 fL (7.4-10.4); Platelet Count 176 10^3/uL (130-400); Red Blood Cell Count 3.54 10^6/uL (4.70-6.10); Red Cell Dist. Width 12.7 % (11.5-14.5); White Blood Cell Count 13.6 10^3/uL (4.8-10.8)
[2024-05-14] MEDS: TYLENOL 1000 MG PO ×3 (06:00→22:27)
[2024-05-14 06:19] LABS: Blood Urea Nitrogen 19 mg/dl (9-20); Calcium 8.3 mg/dl (8.4-10.2); Carbon Dioxide 27 mmol/L (22-30); Chloride 101 mmol/L (98-107); Estimated Creatinine Clearance 80 ml/min; Glucose 71 mg/dl (70-99); Magnesium 1.9 mg/dl (1.6-2.3); Potassium 4.3 mmol/L (3.5-5.1); Sodium 134 mmol/L (135-145); eGFR > 60.00
[2024-05-14 06:19] LABS: Glucose - Point of Care 128 mg/dl (70-99)
--- NOTE | 2024-05-14 06:29 | W.PN.CT ---
Today's Communication / Plan
-
-pod #2
-no issues overnight
-CT output: 2 meds 75/175 in 06/[address] out
-d/c Romana (gave Flomax x1 for hx urinary retention/frequency/suspected BPH)
-current meds (ASA, Plavix, Lopressor, Amio, Protonix, Crestor, Feosol, Farxiga to start 05/14)
-encourage IS, OOB
Assessment / Plan
-
- s/p CABG x 2 (In situ FLEMING to LAD, Ao to RSVG to RPDA); Left atrial appendage exclusion [35 mm clip] by Dr. Rivera on 05/12/24, pod #2
- intraop JAYE: LVEF 60% pre and postop with no no regional wall motion abnormalities
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
- Hyperlipidemia
- Hypertension
- Diabetes mellitus type 2 insulin-dependent
- Glaucoma
- Arthritis
- Gout
- Hard of hearing
- Urinary frequency, hx bladder repair
- Hx of 7 rib fractures/punctured lung/reduced lung capacity
- Acute postop blood loss anemia - stable without transfusion
- Acute postop atelectasis
- Acute postop hypovolemia with subsequent hypervolemia
- Suspected acute postop pericarditis/+rub
Subjective
-
Date of Service: May 14, 2024
Objective Data
-
Lab Results
05/14/24 04:00
05/14/24 04:00
PT 15.9 Sec (11.4-14.6) H 05/12/24 11:01
INR 1.24 05/12/24 11:01
APTT 28.7 Sec (23.4-35.0) 05/12/24 11:01
Vital Signs
Vital Signs
Temp Pulse Resp BP Pulse Ox
98.7 F 66 16 144/70 95
05/13/24 22:00 05/14/24 06:00 05/13/24 22:00 05/14/24 04:00 05/14/24 04:00
CT Intake/Output/Weight
05/13/24 05/13/24 05/14/24
06:59 18:59 06:59
Intake Total 317.6 / 727.1 1308.6 / 1661.0 352.4 / 1661.0
Output Total 540 / 1105 230 / 495 265 / 495
Balance -222.4 / -377.9 1078.6 / 1166.0 87.4 / 1166.0
SaO2: 95
Physical Exam
-
General: Awake, Oriented and AOx3
Cardiovascular: Regular rate & rhythm, No Murmurs and No Rub
Respiratory: Clear and Decreased Breath Sounds
Sternum: Stable
Incision: Clean, Dry and Intact
Extremities: No Edema
Data Reviewed
-
Lab Results: Results Reviewed
Medications: Active Meds Reviewed
Chest X-Ray: Report Reviewed
ECG: Report Reviewed
--- NOTE | 2024-05-14 06:57 | W.PN.CD ---
Today's Communication / Plan
-
continue post op care as per CT surgery
Chest tube removeal - timing per CT
Follow up ECG
Impression / Plan
-
74 y/o male (patient of Dr. Kerr) with CAD, hypertension, dyslipidemia, and DM who was recently seen to have multivessel CAD by cath and is now s/p CABG.
Multivessel CAD:
-s/p coronary artery bypass grafting x 2 (In situ FLEMING to LAD, Ao to RSVG to RPDA) and ANJANA exclusion with Dr. Rivera 05/12/24.
-JAYE EF 50%
-ASA, statin, BB
- soft rub on exam . can reassess aftre chest tubes removed and can repeat CXR
post op anemia stable hb 11.4
HTN:
-monitor post-op
-on ACEI and BB - resume post op as tolerated
DM2:
-diabetic CLERICAL SUPPORT following
Dyslipidemia:
-continue rosuvastatin
Physical Exam
Vital Signs/Labs
Vital Signs
Temp Pulse Resp BP Pulse Ox
98.6 F 66 16 144/70 95
05/14/24 04:00 05/14/24 06:00 05/14/24 04:00 05/14/24 04:00 05/14/24 06:31
05/12/24 05/13/24 05/14/24
06:59 06:59 06:59
Actual Weight 72.2 kg 74.2 kg 75.2 kg
05/14/24 04:00
05/14/24 04:00
PT 15.9 Sec (11.4-14.6) H 05/12/24 11:01
INR 1.24 05/12/24 11:01
APTT 28.7 Sec (23.4-35.0) 05/12/24 11:01
Magnesium 1.9 mg/dl (1.6-2.3) 05/14/24 04:00
Physical Exam
Constitutional: No acute distress
Cardiovascular: Rhythm & rate is regular (soft rub noted. Chest tubes are intact)
Respiratory: Wheeze Absent and Rhonchi Absent
GI: Soft
Neuro/Psych: Alert
Data Reviewed
-
Date of Service: May 14, 2024
Medical Decision Making: Reviewed Test Results
EKG: Report Reviewed by me
Medical Tests (PFT, Pathology etc): Report Reviewed by me
Labs: Labs Reviewed by me
--- NOTE | 2024-05-14 07:30 | PTCARENOTE ---
Assumed care of patient from plant operator/shift supervisor RN. AAO x 3 sitting up in bed. SR on monitor. Epicardial wire insulated. 2 L NC with pulse ox of 95%. IS to 750. Chest tubes to - 20 cm suction. No air leak or crepitus noted. Abdomen soft and non
tender. Passing flatus. Surgical sites well approximated with surgical adhesive present. Pulse palpable. No edema appreciated. Plan for day discussed.
--- NOTE | 2024-05-14 07:31 | W.PN.INTV ---
Today's Communication / Plan
Recommendations
Doing well today, off pressors
Remains on low O2, but IS effort ~500mL, encouraged more effort
OOB, PT encouraged as well
Transitioned off insulin gtt
Transfer to tele per team, we will sign off upon transfer
Assessment
-
Patient is a 74-year-old male with previous history of diabetes, hypertension, hyperlipidemia with recent complaints of chest tightness and burning sensation, evaluated as an outpatient for CAD. Had cardiac catheterization demonstrating significant
proximal LAD disease and proximal lesion in RCA. Underwent elective CABG x 2 on 05/12/2024 and sent to CVICU for further management.
CAD s/p CABx 2 05/12/24
Perioperative mechanical ventilation
Postop anemia, mild
Hyperglycemia
Conditions present prior to admission
Hypertension
Hyperlipidemia
Diabetes type 2
CAD
Seasonal allergies
Gallstones
Glaucoma
Back pain
Prior history of 7 rib fractures and punctured lung in 2015
Urinary frequency
Arthritis
Gout
Hard of hearing with bilateral hearing aids
Bladder repair
Plan
S/p cab POD #2
Off pressors per protocol
ECHO reviewed with normal function
Management of chest tubes per primary service
Pain control
RASS goal of 0 to -1
Intubated for procedure, extubated and doing well
ABG(s) reviewed/adequate
CXR with no sign changes
Maintain supplement oxygen as needed
No prior history of pulmonary disease
No prior PFTs for review
Can add nebulizers if needed
Aspiration precautions
Encouraged incentive spirometry, OOB/ambulation/early mobility
Advance diet as tolerated following extubation
GI prophylaxis if indicated for mechanical ventilation >48 hours
Monitor critical I/O's
Avendano/chest tube output
Hb/platelets postoperatively stable
Trend CBC for now
Can transfuse if indicated for Hb <7, plt <50 in surgical patients
DVT prophylaxis including SCDs
Insulin protocol initiated and ongoing
DM history noted
Transition to SQ/off as indicated per team
Diagnostic Data
Chest X-Ray: 05/12/24- Stable appearance of the support lines and tubes. No discrete pneumothorax.
05/10/24- No acute cardiopulmonary process.
CT Scan: CHEST 05/09/24- 1. No acute findings within the chest.
2. Normal caliber thoracic aorta. Mild to moderate calcified plaque within the distal arch and descending thoracic aorta.
3. Extensive coronary artery calcific indications.
4. Multiple old, healed right rib fractures.
Echo: 05/09/24- Normal biventricular size and systolic function without regional wall motion abnormality. Aortic sclerosis without stenosis. Compared to previous echo 10/07/21, the liver finding was no evaluated as it was on the prior study.
PFT's:
Reports and relevant images were personally reviewed.
Critical Care time 31 mins -- The patient is admitted for acute critical illness for the treatment of vital organ failure and/or prevention of further life-threatening conditions. Total care includes time spent in review of history, physical exam,
medications, hemodynamic/ventilator parameters, laboratory data, imaging and discussion with house staff, pharmacy, respiratory therapy, manufacturing tech, and nursing.
Subjective Dataa
Subjective Data
Date of Service:
Date of Service: May 14, 2024
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
Subjective:
Doing well today, off all gtts
No new complaints
Objective Data
Data Reviewed
Vital Signs / I&O / Oxygen:
Vital Signs
Temp Pulse Resp BP Pulse Ox
98.6 F 66 16 144/70 95
05/14/24 04:00 05/14/24 06:00 05/14/24 04:00 05/14/24 04:00 05/14/24 06:31
Intake and Output
05/13/24 05/14/24 05/15/24
06:59 06:59 06:59
Intake Total 727.1 / 727.1 1695.6 / 1695.6
Output Total 1105 / 1105 715 / 715
Balance -377.9 / -377.9 980.6 / 980.6
SaO2 [SIMV] 98
SaO2 95
Nasal Cannula flow liters per 2
minute
Physical Exam
General: Comfortable and Other (NAD)
HEENT: Normocephalic, Anicteric and Moist Mucous Membranes
Cardiovascular: S1-S2 and Regular Rhythm
Respiratory: Clear and Non-Labored Respirations
GI: Soft, Non Distended and Non Tender
Neurology: Awake, Alert, Oriented and No Motor Deficits
Skin: Warm, Dry and Good Color
Labs/Micro/Reports
Lab Data
05/14/24 04:00
05/14/24 04:00
Microbiology
05/10/24 12:33 Nose MRSA Screen - Final
No Methicillin Resistant Staphylococcus aureus isolated.
--- NOTE | 2024-05-14 07:36 | W.PN.UPDATE ---
Update Note
Progress Note Update
No pacing required since surgery. 1 bipolar ventricular lead removed without difficulty. Vital signs to be monitored every 15 minutes x 4.
--- NOTE | 2024-05-14 07:41 | W.PN.ANS.POP ---
Anesthesia Post Operative
- Anesthesia Post Op Note
Vital Signs Stable-See Nursing Note: Yes
Airway Patent: Yes
Adequate Pain Control: Yes
Change in Mental Status: No
Current Postoperative Nausea & Vomiting: No
Anesthesia Complications: No
General Anesthetic Recall: No
Unplanned Admission: No
Post Op Hydration Adequate: Yes
[2024-05-14] MEDS: VITAMIN D3 (cholecalciferol) 50 MCG PO (07:43)
[2024-05-14] MEDS: LOW STRENGTH ASPIRIN 81 MG PO (07:43)
[2024-05-14] MEDS: LIDOCAINE 4% PATCH 1 PATCH TOPICAL (07:43)
[2024-05-14] MEDS: PROTONIX 40 MG PO (07:43)
[2024-05-14] MEDS: PLAVIX 75 MG PO (07:43)
[2024-05-14] MEDS: PACERONE 200 MG PO ×3 (07:44→22:27)
[2024-05-14] MEDS: NEURONTIN 100 MG PO ×3 (07:44→22:27)
[2024-05-14] MEDS: BACTROBAN 2% OINTMENT 1 APPLIC NASAL ×2 (07:44→20:06)
[2024-05-14] MEDS: SENOKOT-S 1 TABLET PO ×2 (07:44→20:07)
[2024-05-14] MEDS: FARXIGA 10 MG PO (07:44)
[2024-05-14] MEDS: LOPRESSOR 12.5 MG PO ×2 (07:44→20:06)
[2024-05-14] MEDS: VITAMIN C 500 MG PO (07:44)
[2024-05-14] MEDS: CRESTOR 20 MG PO (07:44)
[2024-05-14 07:51] LABS: Glucose - Point of Care 104 mg/dl (70-99)
[2024-05-14] MEDS: NOVOLOG FLEXPEN SC (07:59)
[2024-05-14] MEDS: MUCINEX 1200 MG PO ×2 (08:20→20:07)
--- NOTE | 2024-05-14 08:49 | PTCARENOTE ---
Epicardial wire removed by CT INDUSTRIAL ECOLOGIST, bed rest maintained x 1 hour with Q 15 minute BP per protocol. After 1 hour mediastinal chest tubes removed per order. Pt tolerated w/o issue.
[2024-05-14] MEDS: COLCHICINE 0.6 MG PO (09:13)
[2024-05-14 09:48] LABS: Glucose - Point of Care 87 mg/dl (70-99)
--- NOTE | 2024-05-14 11:47 | PTCARENOTE ---
Ambulated in hallway with RN for approx 75 feet. Tolerated w/o issue. attempted on room air 90%, placed on 1 L NC pulse ox 93%. Vss will continue to monitor.
[2024-05-14] MEDS: NOVOLOG FLEXPEN-MODERATE RESISTANCE SC (13:29)
[2024-05-14 13:38] LABS: Glucose - Point of Care 183 mg/dl (70-99)
[2024-05-14] MEDS: NOVOLOG FLEXPEN-MODERATE RESISTANCE 1 UNITS SC ×2 (13:38→17:12)
--- NOTE | 2024-05-14 16:58 | PTCARENOTE ---
Ambulating with x 1 minimal assistance, minimal pain this evening. IS to 1250. VSS Assessment unchanged from prior.
[2024-05-14 17:12] LABS: Glucose - Point of Care 192 mg/dl (70-99)
[2024-05-14] MEDS: GLUCOPHAGE XR EXTENDED RELEASE 500 MG PO (17:38)
[2024-05-14] MEDS: XALATAN OPHTHALMIC SOLUTION 1 DROP OPHTH (17:39)
--- NOTE | 2024-05-14 20:30 | PTCARENOTE ---
Patient received OOB in chair watching television. Patient A+A+Ox3. No neurological deficits noted. No c/o headache, dizziness or lightheadedness. 2L O2. SpO2 95%. Chest tube dressing intact. Sinus Rhythm. Heart rate 70's. No c/o chest
pain, pressure or discomfort. Normoactive bowel sounds in all four quads. No BM. Positive flatus. No c/o nausea. No vomiting. Voiding yellow, clear urine without difficulty. No c/o back or flank pain. Positive, palpable pulses. Sternal
incision intact - Surgical adhesive - Open to air. Right groin puncture site intact - Ecchymotic. Right knee incision intact - Surgical adhesive - Open to air. Patient assisted to bed with minimal assistance. Assessment as documented.
[2024-05-14 22:19] LABS: Glucose - Point of Care 175 mg/dl (70-99)
--- NOTE | 2024-05-14 23:30 | PTCARENOTE ---
Patient sleeping without difficulty. No further changes from previous assessment. Interventions as documented.
[2024-05-15] VITALS (13 sets, daily range): BP systolic 109–158; BP diastolic 46–68; PULSE 74–75; O2SAT 95–96; BMI 24.5
[2024-05-15 04:23] LABS: Hematocrit 34.6 % (39.0-52.0); Hemoglobin 11.6 g/dL (13.0-18.0); Mean Corp Hgb Conc. 33.5 g/dL (33.0-37.0); Mean Corpuscular Volume 92.5 fL (80.0-94.0); Platelet Count 180 10^3/uL (130-400); Red Blood Cell Count 3.74 10^6/uL (4.70-6.10); Red Cell Dist. Width 12.5 % (11.5-14.5); White Blood Cell Count 11.1 10^3/uL (4.8-10.8)
--- NOTE | 2024-05-15 04:30 | PTCARENOTE ---
Patient A+A+Ox3. No neurological deficits noted. AM lab work collected and sent. Patient given CHG bath and linens changed. Chest tube dressing changed. Patient ambulated to bathroom with minimal assistance. Voided. No BM. Patient brushed
teeth. Washed face. Standing scale weight 73.1 kg. Patient back to bed. Assessment/Interventions as documented.
[2024-05-15 04:53] LABS: Blood Urea Nitrogen 22 mg/dl (9-20); Calcium 8.1 mg/dl (8.4-10.2); Carbon Dioxide 22 mmol/L (22-30); Chloride 103 mmol/L (98-107); Estimated Creatinine Clearance 71 ml/min; Glucose 135 mg/dl (70-99); Potassium 4.4 mmol/L (3.5-5.1); Sodium 138 mmol/L (135-145); eGFR > 60.00
--- NOTE | 2024-05-15 05:12 | W.PN.CT ---
Today's Communication / Plan
-
-pod #3
-no issues overnight
-working on IS/mucinex/acapella, remains on 2 L NC
-Colchicine for pericarditis started.
-Med CT out. Pl out day before
-UOP 800/2300 in 12/24 hrs
-current meds (ASA, Plavix, Lopressor 12.5 mg, Amio, Protonix, Crestor, Feosol, lisinopril, Farxiga starts today)
-shot acting insulin, metformin, glipizide started
-encourage IS, OOB
Assessment / Plan
-
- s/p CABG x 2 (In situ FLEMING to LAD, Ao to RSVG to RPDA); Left atrial appendage exclusion [35 mm clip] by Dr. Rivera on 05/12/24, pod #3
- intraop JAYE: LVEF 60% pre and postop with no no regional wall motion abnormalities
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
- Hyperlipidemia
- Hypertension
- Diabetes mellitus type 2 insulin-dependent
- Glaucoma
- Arthritis
- Gout
- Hard of hearing
- Urinary frequency, hx bladder repair
- Hx of 7 rib fractures/punctured lung/reduced lung capacity
- Acute postop blood loss anemia - stable without transfusion
- Acute postop atelectasis
- Acute postop hypovolemia with subsequent hypervolemia
- Suspected acute postop pericarditis/+rub
Subjective
Procedure
s/p CABG x 2 (In situ FLEMING to LAD, Ao to RSVG to RPDA); Left atrial appendage exclusion [35 mm clip] by Dr. Rivera on 05/12/24
-
Date of Service: May 15, 2024
Objective Data
-
Lab Results
05/15/24 03:50
05/15/24 03:50
PT 15.9 Sec (11.4-14.6) H 05/12/24 11:01
INR 1.24 05/12/24 11:01
APTT 28.7 Sec (23.4-35.0) 05/12/24 11:01
Vital Signs
Vital Signs
Temp Pulse Resp BP Pulse Ox
97.8 F 73 16 155/68 95
05/15/24 03:45 05/15/24 04:10 05/15/24 03:45 05/15/24 03:45 05/15/24 03:[address]
CT Intake/Output/Weight
05/14/24 05/14/24 05/15/24
06:59 18:59 06:59
Intake Total 387.0 / 1695.6 1024 / 1504 480 / 1504
Output Total 485 / 715 1510 / 2310 800 / 2310
Balance -98.0 / 980.6 -486 / -806 -320 / -806
SaO2: 95
Physical Exam
-
General: Awake, Oriented and AOx3
Cardiovascular: Regular rate & rhythm, No Murmurs and Rub
Respiratory: Clear, Equal and Decreased Breath Sounds
Sternum: Stable
Incision: Clean, Dry and Intact
Extremities: No Edema
Data Reviewed
-
Lab Results: Results Reviewed
Medications: Active Meds Reviewed
CT Scan: Report Reviewed
ECG: Report Reviewed
[2024-05-15] MEDS: TYLENOL PO (06:00)
--- NOTE | 2024-05-15 07:41 | W.PN.CD ---
Today's Communication / Plan
-
Chest tube/pain management per CT surgery - CT likely out today.
Agree with resumption of lisinopril.
Agree with addition of dapagliflozin.
He may benefit from GLP1 analog as an outpatient (semaglutide).
Incentive spirometry.
Ambulation.
If we are treating pericarditis, then continue colchicine x 3 months and consider combining with high dose aspirin taper as follows:
-ASA 975 mg TID x 3 days, then
-ASA 650 mg TID x 3 days, then
-ASA 325 mg TID x 3 days, then
-ASA 325 mg BID x 3 days, then
-ASA 325 mg daily x 3 days, then
-ASA 81 mg daily indefinitely.
If pericarditis does not need to be treated, then discontinue colchicine and reduce ASA to 81 mg daily.
Impression / Plan
-
Impression/Plan: 74 y/o male (patient of Dr. Kerr) with CAD, hypertension, dyslipidemia, and DM who was recently seen to have multivessel CAD admitted for elective CABG.
#Multivessel CAD:
-Chronic, progressive.
-S/P coronary artery bypass grafting x 2 (In situ FLEMING to LAD, SVG to RPDA) with Dr. Rivera 05/12/24.
-Intraoperative JAYE LVEF = 50%.
-Continue amiodarone per protocol.
-Continue aspirin, clopidogrel and rosuvastatin.
-Change metoprolol tartrate to metoprolol succinate 25 mg daily.
-Chest tube/pain management per CT surgery.
-Encourage incentive spirometry and ambulation.
#Pericarditis
-Acute, post operative.
-EKG shows diffuse ST elevation with some OH depression.
-Rub on exam.
-Patient denies any chest pain. This may be more of an EKG/physical exam finding than clinically significant pericarditis.
-If we are going to treat pericarditis, continue colchicine 0.6 mg BID for 3 months.
-Combine with high dose aspirin taper:
-ASA 975 mg TID x 3 days, then
-ASA 650 mg TID x 3 days, then
-ASA 325 mg TID x 3 days, then
-ASA 325 mg BID x 3 days, then
-ASA 325 mg daily x 3 days, then
-ASA 81 mg daily indefinitely.
#Anemia
-Acute.
-Hbg stable @ 11.4.
-S/P LAAE (#[address]) with Dr. Rivera, 05/12/2024.
#HTN:
-Chronic, upward creeping.
-Agree with restarting lisinopril.
#DM2:
-Chronic, stable.
-Metformin restarted.
-Patient started on dapagliflozin 10 mg daily.
-He may benefit from semaglutide as an outpatient.
#Dyslipidemia:
-Chronic, stable.
-Continue rosuvastatin 20 mg daily.
-Goal LDL < 55, triglycerides < 150.
Subjective/Interval History:
Patient diagnosed with pericarditis (JAVED, rub on exam), colchicine started.
Furosemide 40 mg IV x1 given yesterday.
Weight is down 2.1 kg from yesterday.
SaO2 95% on 2LNC.
Poor incentive spirometry due to prior rib fractures.
BP creeping up. Lisinopril ordered for this morning.
DATA:
Intraoperative JAYE, 05/12/2024:
CONCLUSIONS
Low-normal left ventricular systolic function with no regional wall motion
abnormalities. The LVEF is 50%.
Normal right ventricular systolic function.
Structurally normal mitral valve with trace regurgitation.
Normal left atrial appendage.
Normal aortic and tricuspid valves.
Normal size aorta with grade III atheromatous disease in the arch and
descending thoracic aorta.
POST OPERATIVE FINDINGS
S/P CABG x 2: FLEMING-LAD; SVG-RPDA, Left atrial appendage exclusion.
The left atrial appendage is no longer visible with no blood flow confirmed by
color Doppler. Otherwise unchanged exam.
Cardiac Catheterization, 05/05/2024:
CORONARY ANGIOGRAPHY
Dominance: Right.
Left Main: Normal.
LAD: The LAD is moderately calcified. There is 99% mid LAD stenosis with JEAN grade II flow due to competitive flow from the RCA to the distal LAD. The small to medium sized third diagonal branch has diffuse moderate disease
Circumflex: Trivial luminal disease.
RCA: Large dominant mildly calcified vessel with focal 90% mid stenosis. The RPDA and RPL are both very large with no significant disease.
Physical Exam
Vital Signs/Labs
Vital Signs
Temp Pulse Resp BP Pulse Ox
36.6 C 72 16 155/68 95
05/15/24 03:45 05/15/24 06:30 05/15/24 03:45 05/15/24 03:45 05/15/24 05:14
05/13/24 05/14/24 05/15/24
11:59 11:59 11:59
Actual Weight 74.2 kg 75.2 kg 73.1 kg
05/15/24 03:50
05/15/24 03:50
PT 15.9 Sec (11.4-14.6) H 05/12/24 11:01
INR 1.24 05/12/24 11:01
APTT 28.7 Sec (23.4-35.0) 05/12/24 11:01
Magnesium 2.0 mg/dl (1.6-2.3) 05/15/24 03:50
Physical Exam
Constitutional: No acute distress and Comfortable
EENT: Anicteric and Moist mucous membranes
Cardiovascular: Rhythm & rate is regular, Pedal edema is absent, JVD pressure is normal, S1S2 is normal and Rub present
Respiratory: Respiratory effort normal and Other (Decreased throughout.)
GI: Soft, Distention absent, Flat, Non tender and Normal bowel sounds
Neuro/Psych: AO x 3
Data Reviewed
-
Date of Service: May 15, 2024
Medical Decision Making: Reviewed Test Results, Independent Historian Assessment, Test Interpretation and Review of Case with other Provider
EKG: Tracing Personally Visualized and interpreted and Report Reviewed by me
Echo: Report Reviewed by me
X-Ray/CT/US/MRI/NUC/PET: Image Personally Visualized and interpreted and Report Reviewed by me
Medical Tests (PFT, Pathology etc): Report Reviewed by me
Labs: Labs Reviewed by me
Old Records: Reviewed
[2024-05-15] MEDS: PACERONE 200 MG PO ×3 (08:03→21:34)
[2024-05-15] MEDS: GLUCOPHAGE XR EXTENDED RELEASE 500 MG PO ×2 (08:03→17:26)
[2024-05-15] MEDS: LASIX 40 MG IV (08:03)
[2024-05-15 08:04] LABS: Glucose - Point of Care 134 mg/dl (70-99)
[2024-05-15] MEDS: LOPRESSOR 12.5 MG PO ×2 (08:04→19:59)
[2024-05-15] MEDS: MUCINEX 1200 MG PO ×2 (08:04→20:04)
[2024-05-15] MEDS: CRESTOR 20 MG PO (08:04)
[2024-05-15] MEDS: SENOKOT-S 1 TABLET PO ×2 (08:05→19:59)
[2024-05-15] MEDS: PROTONIX 40 MG PO (08:05)
[2024-05-15] MEDS: LOW STRENGTH ASPIRIN 81 MG PO (08:05)
[2024-05-15] MEDS: ZESTRIL 10 MG PO (08:05)
[2024-05-15] MEDS: PLAVIX 75 MG PO (08:05)
[2024-05-15] MEDS: FARXIGA 10 MG PO (08:06)
[2024-05-15] MEDS: VITAMIN D3 (cholecalciferol) 50 MCG PO (08:06)
[2024-05-15] MEDS: COLCHICINE 0.3 MG PO (08:06)
[2024-05-15] MEDS: VITAMIN C 500 MG PO (08:06)
[2024-05-15] MEDS: NEURONTIN 100 MG PO ×3 (08:06→21:34)
[2024-05-15] MEDS: NOVOLOG FLEXPEN-MODERATE RESISTANCE SC ×2 (08:07→17:38)
[2024-05-15] MEDS: BACTROBAN 2% OINTMENT 1 APPLIC NASAL ×2 (08:07→20:00)
[2024-05-15] MEDS: NSS IV (08:14)
[2024-05-15] MEDS: LIDOCAINE 4% PATCH TOPICAL (08:14)
--- NOTE | 2024-05-15 08:34 | PN.DE.MGMTRT ---
Insulin Management
- -
05/15/2024: Diabetes management F/U:
74 year old male electively admitted 05/12 fo CABG due to two vessel CAD with preserved EF. PMH: MVCAD, HTN, HLD, T2DM, Glaucoma, Arthritis, Gout and Hard of hearing. Was taking Metformin 500mg BID and Glipizide 2.5mg daily. A1C 7.8%, Cr 0.7, eGFR
>60. States he has a working meter and monitors his blood sugars 3-4 times a day. 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 States pt has had DM for over 30 yrs and that he was recently
told that his Pancrease is starting to get worn out which is why he is now requiring more diabetes medications. Says they eat clean, mainly organic foods and that his blood sugar has always been in range during the day but tends to run high in the
morning. Pt was recently told to increase his Glipizide to BID but had significant GI SE from the BID dose so he was waiting to go back to his PCP to discuss. He has looked into Jardiance but it was cost prohibitive.
Pt is awake, alert, sitting up in chair, pleasant, offers no acute complaints, able to discuss diabetes management. -Shae at bedside
POD # 4 s/p CABG x2. Transitioned off Glycemic protocol on 05/14 to his OP regimen.
Glucose is stable and in range, Premeal 87 to 192, FBG 135 this AM.
Had a lengthy discussion with pt and , emphasized importance of optimal glucose control especially post-operatively.
Both receptive and agreeable to SGLT2 (either Farxiga/Jardiance ) in addition to increased dose of Glipizide 5mg daily.
Will cont Metformin 500mg XL BID and low corrective with meals.
Discussed OP DSME Classes and provided information and booklet. Pt expressed interest, encouraged to call and register for spring classes after cardiac rehab.
Will cont to follow. Pt has working glucose monitor at home
D/W case picker and requested verification of co-pay for Farxiga/Jardiance and to notify pt and with information.
Diabetes History
- -
Type of Diabetes: 2
Pre-Admission Diabetes Regimen
05/15/24
03:50
Creatinine 0.9
Insulin Pump Settings
IP Diabetes Regimen
05/14/24 05/14/24 05/14/24
09:45 13:37 17:11
Glucose
POC Glucose 87 183 H 192 H
05/14/24 05/15/24 05/15/24
22:17 03:50 08:02
Glucose 135 H
POC Glucose 175 H 134 H
Meal type: Dinner
Meal type: Breakfast
Amount consumed: 75%
Amount consumed: 65%
Patient Education
--- NOTE | 2024-05-15 09:16 | PTCARENOTE ---
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 AAO X 3, states pain controlled at this time. NSR via cm, SaO2 @ 95% on RA. All procedural sites stable. Patient assisted to bathroom, voided. Patient updated to plan of care for the day, in
agreement. See work list for full assessment and interventions performed.
[2024-05-15] MEDS: ROXICODONE 5 MG PO (10:04)
--- NOTE | 2024-05-15 10:18 | CM ---
Addendum entered by Rochelle Gutiérrez 05/15/24 15:28:
Telephone call to Ximena ,([phone]) to check on his co-pay for Farxiga and Jardiance. His co-pay for Farxiga is $137.59 a month and Jardiance co-pay is $351.53 a month.
Original Note:
Reviewed chat. Met with and Mrs. Aguirre to review discharge plans. He states he is feeling okay. He states he was a little SOB ambulating today. His home address is [address] [place] [address]. [phone]. We reviewed a home visit by the
Transitional Care Nurse. He is agreeable to a home visit. Prior to admission he resides with his spouse in a two story home with four steps to enter. He has to go up a full flight of steps to get to bedroom/full bathroom. He only has the one
bathroom on the second floor. Prior to admission he was independent with ambulation and adls. He does not have any DME in the home. He has a prescription plan with [facility]. His spouse will be home to assist in his care if needed.
Medical work-up in progress. The discharge plan is to return home with his spouse and a home visit by the Transitional Care Nurse when medically stable.
[2024-05-15 11:47] LABS: Glucose - Point of Care 176 mg/dl (70-99)
[2024-05-15] MEDS: NOVOLOG FLEXPEN-MODERATE RESISTANCE 1 UNITS SC (11:48)
[2024-05-15] MEDS: GLUCOTROL XL (EXTENDED RELEASE) 5 MG PO (11:48)
--- NOTE | 2024-05-15 11:53 | PTCARENOTE ---
VS obtained, stable. Patient oob, perusing lunch menu. at bedside.
[2024-05-15] MEDS: TYLENOL 1000 MG PO ×2 (13:52→21:34)
--- NOTE | 2024-05-15 16:00 | PTCARENOTE ---
VS obtained, stable. Assisted patient to ambulate small loop of unit, tolerated well.
[2024-05-15 17:35] LABS: Glucose - Point of Care 112 mg/dl (70-99)
[2024-05-15] MEDS: XALATAN OPHTHALMIC SOLUTION 1 DROP OPHTH (20:00)
--- NOTE | 2024-05-15 20:45 | PTCARENOTE ---
Assumed care of pt from marcus RN. Walking rounds completed. Pt AAOx3. CARR. Stand by assist out of the chair. Pt is SR on the tele monitor. HR 70s. BP 152/57. MAP 87. Palpable pulses throughout. No edema noted. Pt on RA. POX 96%. Lung sounds
diminished throughout. Deep breathing and IS encouraged. Abdomen soft/nontender. +BS. Pt voiding yellow urine w/o issue. All surgical sites stable. Right wrist 18 gauge C/D/I. Pt walked around unit w/minimal assist. No dizziness. Pt then
repositioned in bed. No c/o pain at this time. See worklist for full nursing assessment and interventions. Call rose within reach.
[2024-05-16] VITALS (28 sets, daily range): BP systolic 104–148; BP diastolic 45–125; PULSE 67; O2SAT 97–100; BMI 24.2
--- NOTE | 2024-05-16 00:10 | PTCARENOTE ---
No acute change in assessment. Pt remains SR on the tele monitor. HR 60s. BP 148/61. MAP 85. Pt on RA. POX 92-93%. All surgical sites stable. Pt repositioned in bed. Call rose within reach.
--- NOTE | 2024-05-16 04:32 | PTCARENOTE ---
No change in assessment. Pt SR on the tele monitor. HR 70-80s. BP stable. Pt on RA. POX 93%. All surgical sites stable. Pt voiding w/o issue. Stand by assist to the bathroom. Labs drawn and sent. No c/o of pain at this time.
[2024-05-16 05:04] LABS: Blood Urea Nitrogen 30 mg/dl (9-20); Calcium 8.3 mg/dl (8.4-10.2); Carbon Dioxide 20 mmol/L (22-30); Chloride 100 mmol/L (98-107); Estimated Creatinine Clearance 71 ml/min; Glucose 139 mg/dl (70-99); Magnesium 2.3 mg/dl (1.6-2.3); Potassium 4.1 mmol/L (3.5-5.1); Sodium 136 mmol/L (135-145); eGFR > 60.00
[2024-05-16 05:15] LABS: Hematocrit 34.8 % (39.0-52.0); Hemoglobin 11.9 g/dL (13.0-18.0); Mean Corp Hgb Conc. 34.2 g/dL (33.0-37.0); Mean Corpuscular Hgb 30.9 pg (27.0-31.0); Mean Corpuscular Volume 90.4 fL (80.0-94.0); Mean Platelet Volume 9.7 fL (7.4-10.4); Platelet Count 251 10^3/uL (130-400); Red Blood Cell Count 3.85 10^6/uL (4.70-6.10); Red Cell Dist. Width 12.6 % (11.5-14.5)
--- NOTE | 2024-05-16 05:16 | W.PN.CT ---
Today's Communication / Plan
-
Plan:
-No major issues overnight. Hemodynamically and neurologically intact
-Weaned off O2, currently 93% on RA
-Small b/l pleural effusion/atelectasis on cxr
-F/U 2-view cxr
-Encourage use of IS
-Colchicine d/c'd
-Cont. current meds (ASA, Plavix, Lopressor 12.5 mg, Amio, Protonix, Crestor, Feosol, lisinopril, Farxiga)
-Diabetes education/management following
-OOB into chair/Ambulate
-Home today
Assessment / Plan
-
- s/p CABG x 2 (In situ FLEMING to LAD, Ao to RSVG to RPDA); Left atrial appendage exclusion [35 mm clip] by Dr. Rivera on 05/12/24, pod #4
- intraop JAYE: LVEF 60% pre and postop with no no regional wall motion abnormalities
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
- Hyperlipidemia
- Hypertension
- Diabetes mellitus type 2 insulin-dependent
- Glaucoma
- Arthritis
- Gout
- Hard of hearing
- Urinary frequency, hx bladder repair
- Hx of 7 rib fractures/punctured lung/reduced lung capacity
- Acute postop blood loss anemia - stable without transfusion
- Acute postop atelectasis
- Acute postop pulmonary insufficiency
- Acute postop hypovolemia with subsequent hypervolemia
- Suspected acute postop pericarditis/+rub
Discussed patient care with: Cardiology, Nursing, Respiratory Therapy, Pharmacy and Care Team
Subjective
Procedure
s/p CABG x 2 (In situ FLEMING to LAD, Ao to RSVG to RPDA); Left atrial appendage exclusion [35 mm clip] by Dr. Rivera on 05/12/24
-
Date of Service: May 16, 2024
No issues overnight. C/O mild incisional pain, otherwise feels well. Ambulating halls without difficulty
Objective Data
-
Lab Results
05/16/24 04:18
05/16/24 04:18
PT 15.9 Sec (11.4-14.6) H 05/12/24 11:01
INR 1.24 05/12/24 11:01
APTT 28.7 Sec (23.4-35.0) 05/12/24 11:01
Vital Signs
Vital Signs
Temp Pulse Resp BP Pulse Ox
97.9 F 80 18 146/58 93
05/16/24 04:11 05/16/24 04:11 05/16/24 04:11 05/16/24 04:11 05/16/24 04:11
CT Intake/Output/Weight
05/15/24 05/15/24 05/16/24
06:59 18:59 06:59
Intake Total 480 / 1504 500 / 500
Output Total 800 / 2310 1100 / 1100
Balance -320 / -806 -600 / -600
SaO2: 93 (RA)
Physical Exam
-
General: Awake, Oriented and AOx3
Cardiovascular: Regular rate & rhythm, No Murmurs, No Rub and No Gallop
Respiratory: Decreased Breath Sounds
Sternum: Stable
Incision: Clean, Dry, Intact and Dressing Intact
Extremities: No Edema
Data Reviewed
-
Lab Results: Results Reviewed
Medications: Active Meds Reviewed
Chest X-Ray: Report Reviewed and Image Reviewed
ECG: Report Reviewed and Image Reviewed
[2024-05-16] MEDS: TYLENOL 1000 MG PO ×3 (06:04→21:35)
[2024-05-16 07:38] LABS: Glucose - Point of Care 159 mg/dl (70-99)
[2024-05-16] MEDS: NOVOLOG FLEXPEN-MODERATE RESISTANCE 1 UNITS SC ×2 (07:39→18:20)
--- NOTE | 2024-05-16 08:12 | PTCARENOTE ---
Assumed care of patient at 0700. Pt is awake, alert, and oriented. No complaints of pain. Pt remains SR with HR 80's. BP 135/61 MAP 82. Pulse oximetry 96% on room air. Pt achieving 1500 with IS, continued use encouraged. Pt tolerating PO diet.
Voiding without difficulty. 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 Right leg incision approximated and RAKESH. Right groin puncture ecchymotic, dressing intact. Pt currently OOB in chair with call rose within reach.
[2024-05-16] MEDS: VITAMIN C 500 MG PO (09:01)
[2024-05-16] MEDS: NEURONTIN 100 MG PO ×3 (09:01→21:35)
[2024-05-16] MEDS: PACERONE 200 MG PO ×3 (09:01→21:35)
[2024-05-16] MEDS: LOW STRENGTH ASPIRIN 81 MG PO (09:01)
[2024-05-16] MEDS: ZESTRIL 10 MG PO (09:02)
[2024-05-16] MEDS: GLUCOTROL XL (EXTENDED RELEASE) 5 MG PO (09:02)
[2024-05-16] MEDS: PLAVIX 75 MG PO (09:02)
[2024-05-16] MEDS: FARXIGA 10 MG PO (09:02)
[2024-05-16] MEDS: SENOKOT-S 1 TABLET PO ×2 (09:02→19:44)
[2024-05-16] MEDS: GLUCOPHAGE XR EXTENDED RELEASE 500 MG PO ×2 (09:02→16:30)
[2024-05-16] MEDS: MUCINEX 1200 MG PO ×2 (09:02→19:44)
[2024-05-16] MEDS: VITAMIN D3 (cholecalciferol) 50 MCG PO (09:02)
[2024-05-16] MEDS: LOPRESSOR 12.5 MG PO (09:02)
[2024-05-16] MEDS: PROTONIX 40 MG PO (09:03)
[2024-05-16] MEDS: NSS IV (09:03)
[2024-05-16] MEDS: LIDOCAINE 4% PATCH TOPICAL (09:03)
[2024-05-16] MEDS: CRESTOR 20 MG PO (09:03)
[2024-05-16] MEDS: BACTROBAN 2% OINTMENT 1 APPLIC NASAL (09:03)
--- NOTE | 2024-05-16 09:22 | PN.DE.MGMTRT ---
Insulin Management
- -
05/16/2024: Diabetes management F/U:
74 year old male electively admitted 05/12 fo CABG due to two vessel CAD with preserved EF. PMH: MVCAD, HTN, HLD, T2DM, Glaucoma, Arthritis, Gout and Hard of hearing. Was taking Metformin 500mg BID and Glipizide 2.5mg daily. A1C 7.8%, Cr 0.7, eGFR
>60. States he has a working meter and monitors his blood sugars 3-4 times a day. 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 States pt has had DM for over 30 yrs and that he was recently
told that his Pancrease is starting to get worn out which is why he is now requiring more diabetes medications. Says they eat clean, mainly organic foods and that his blood sugar has always been in range during the day but tends to run high in the
morning. Pt was recently told to increase his Glipizide to BID but had significant GI SE from the BID dose so he was waiting to go back to his PCP to discuss. He has looked into Jardiance but it was cost prohibitive.
Pt is awake, alert, sitting up in chair, pleasant, offers no acute complaints, able to discuss diabetes management. -Shae and BILLIE at bedside
POD # 5 s/p CABG x2. Transitioned off Glycemic protocol on 05/14 to his OP regimen.
Glucose is stable and in range. 05/15 Premeal 112 to 176, FBG 139 this AM.
Cont Farxiga 10 mg daily Glipizide 5mg XL daily, Metformin 500mg XL BID and low corrective with meals.
reports that pt already has 1 month supply of Jardiance that was picked up prior to surgery.
Discussed OP DSME Classes and provided information and booklet. Pt expressed interest, encouraged to call and register for spring classes after cardiac rehab.
Will cont to follow. Pt has working glucose monitor at home
D/W major case detective and requested verification of co-pay for Farxiga/Jardiance and to notify pt and with information.
Diabetes History
- -
Type of Diabetes: 2
Pre-Admission Diabetes Regimen
05/16/24
04:18
Creatinine 0.9
Insulin Pump Settings
IP Diabetes Regimen
05/15/24 05/15/24 05/16/24
11:44 17:30 04:18
Glucose 139 H
POC Glucose 176 H 112 H
05/16/24
07:35
Glucose
POC Glucose 159 H
Meal type: Dinner
Meal type: Lunch
Meal type: Breakfast
Amount consumed: 75%
Amount consumed: 50%
Amount consumed: 30%
Patient Education
[2024-05-16] MEDS: LOPRESSOR 5 MG IV ×2 (09:38→16:30)
[2024-05-16] MEDS: CORDARONE 103 MG IV ×2 (09:44→15:03)
--- NOTE | 2024-05-16 10:00 | PTCARENOTE ---
0914 Pt converted to Afib with HR 128 BP 148/73 MAP 92. Pt asymptomatic. 5mg IV Lopressor administered followed by Amio bolus x1. 0954 Pt converted to SB HR 52 BP 115/61 MAP 76.
--- NOTE | 2024-05-16 11:22 | CM ---
Reviewed chart. Met with and Mrs. Aguirre to review discharge plans. He states he is feeling well and maybe able to go home soon. We reviewed co-pay for Jardiance and Farxiga. He already filled his Jardiance with the free coupon. We reviewed a
home visit by the Transitional Care [facility]. He is agreeable to a home visit. Prior to admission he resides with his spouse in a two story home with four steps to enter. He has a full fight of steps to get to bedroom/full bathroom. He only has one
bathroom in the home. Prior to admission he was independent with ambulation and adls. He does not have any DME in the home. He has a prescription plan with [facility]. His spouse will be home to assist in his care if needed. Medical
work-up in progress. The discharge plan is to retrn home with his spouse and a home visit by the Transitional Care Nurse when medically stable.
--- NOTE | 2024-05-16 12:00 | PTCARENOTE ---
Pt ambulated with cardiac rehab and completed steps. 2 view x-ray completed.
[2024-05-16 13:06] LABS: Glucose - Point of Care 124 mg/dl (70-99)
[2024-05-16] MEDS: NOVOLOG FLEXPEN-MODERATE RESISTANCE SC (13:58)
[2024-05-16] MEDS: CORDARONE 518 MG IV (15:17)
[2024-05-16] MEDS: FLEXERIL 5 MG PO (16:30)
[2024-05-16 16:49] LABS: Glucose - Point of Care 181 mg/dl (70-99)
--- NOTE | 2024-05-16 17:00 | PTCARENOTE ---
1440 pt converted back to Afib, HR 127. Asymptomatic BP 124/70 MAP 85. Amio bolus given and Amio gtt started. 5mg IV Lopressor given. 1655 converted back to SB, HR 52 BP 112/55 MAP 71.
[2024-05-16] MEDS: XALATAN OPHTHALMIC SOLUTION 1 DROP OPHTH (18:20)
[2024-05-16] MEDS: LOPRESSOR 25 MG PO (19:44)
--- NOTE | 2024-05-16 20:30 | PTCARENOTE ---
Assumed care of pt from marcus RN. Walking rounds completed. Pt AAOx3. CARR. Stand by assist. Pt SR to sinus guillermo on the tele monitor. HR 50-60s. BP stable. Palpable pulses throughout. No edema noted. Pt on RA. POX 95-96%. Lung sounds diminished.
IS and deep breathing encouraged. Abdomen soft/nontender. +BS. Pt voiding in the bathroom w/o issue. All surgical sites stable. Pt right groin puncture site ecchymotic. Left forearm PIV C/D/I. Amiodarone infusing as ordered. See worklist for full
nursing assessment and interventions. Call rose within reach.
[2024-05-17] VITALS (8 sets, daily range): BP systolic 117–167; BP diastolic 55–74; PULSE 63; O2SAT 98; BMI 24.1
--- NOTE | 2024-05-17 00:08 | PTCARENOTE ---
No change in assessment. Pt sinus guillermo on the tele monitor. HR 50s. BP 117/55. MAP 73. Pt on RA. POX 95%. All surgical sites stable. Pt resting in bed at this time. No c/o pain. Amiodarone drip infusing as ordered. Call rose within reach.
[2024-05-17 03:36] LABS: Hematocrit 33.5 % (39.0-52.0); Hemoglobin 11.7 g/dL (13.0-18.0); Mean Corp Hgb Conc. 34.9 g/dL (33.0-37.0); Mean Corpuscular Hgb 31.7 pg (27.0-31.0); Mean Corpuscular Volume 90.8 fL (80.0-94.0); Mean Platelet Volume 9.4 fL (7.4-10.4); Platelet Count 271 10^3/uL (130-400); Red Blood Cell Count 3.69 10^6/uL (4.70-6.10); Red Cell Dist. Width 12.5 % (11.5-14.5); White Blood Cell Count 8.2 10^3/uL (4.8-10.8)
[2024-05-17 04:03] LABS: Blood Urea Nitrogen 28 mg/dl (9-20); Calcium 8.2 mg/dl (8.4-10.2); Carbon Dioxide 25 mmol/L (22-30); Chloride 100 mmol/L (98-107); Estimated Creatinine Clearance 71 ml/min; Glucose 129 mg/dl (70-99); Magnesium 2.4 mg/dl (1.6-2.3); Potassium 4.2 mmol/L (3.5-5.1); Sodium 138 mmol/L (135-145); eGFR > 60.00
--- NOTE | 2024-05-17 04:36 | PTCARENOTE ---
No change in assessment. Pt Sinus guillermo to sinus rhythm on the tele monitor. HR 50-60s. BP stable. Pt on RA. POX 97%. All surgical sites stable. Pt assisted OOB and to the bathroom then repositioned in the chair. Labs drawn and sent. Amiodarone
infusing as ordered. New IV placed as documented in worklist. Call rose within reach.
--- NOTE | 2024-05-17 05:27 | W.PN.CT ---
Today's Communication / Plan
-
-pod #5
-no issues overnight, remained in nsr. on Amio drip @ 0.5
-weaned off O2 - pox 97% on RA
-continue current meds (ASA, Plavix, Crestor, Lopressor increased to 25 bid, Amio 200 tid, Lisinopril, Farxiga, Protonix)
-ambulate
-possible d/c home
Assessment / Plan
-
- s/p CABG x 2 (In situ FLEMING to LAD, Ao to RSVG to RPDA); Left atrial appendage exclusion [35 mm clip] by Dr. Rivera on 05/12/24, pod #5
- intraop JAYE: LVEF 60% pre and postop with no no regional wall motion abnormalities
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
- Hyperlipidemia
- Hypertension
- Diabetes mellitus type 2 insulin-dependent
- Glaucoma
- Arthritis
- Gout
- Hard of hearing
- Urinary frequency, hx bladder repair
- Hx of 7 rib fractures/punctured lung/reduced lung capacity
- Acute postop blood loss anemia - stable without transfusion
- Acute postop atelectasis
- Acute postop pulmonary insufficiency
- Acute postop hypovolemia with subsequent hypervolemia
- Suspected acute postop pericarditis/+rub
- Acute postop a-fib with RVR on 05/16 - converted with iv Lopressor, Amio bolus and drip
Discussed patient care with: Nursing and Care Team
Subjective
Procedure
s/p CABG x 2 (In situ FLEMING to LAD, Ao to RSVG to RPDA); Left atrial appendage exclusion [35 mm clip] by Dr. Rivera on 05/12/24
-
Date of Service: May 17, 2024
Objective Data
-
Lab Results
05/17/24 03:25
05/17/24 03:25
PT 15.9 Sec (11.4-14.6) H 05/12/24 11:01
INR 1.24 05/12/24 11:01
APTT 28.7 Sec (23.4-35.0) 05/12/24 11:01
Vital Signs
Vital Signs
Temp Pulse Resp BP Pulse Ox
97.8 F 63 20 155/64 97
05/17/24 03:26 05/17/24 03:26 05/17/24 03:26 05/17/24 03:26 05/17/24 03:26
CT Intake/Output/Weight
05/16/24 05/16/24 05/17/24
06:59 18:59 06:59
Intake Total 66.6 / 266.6 200.0 / 266.6
Balance 66.6 / 266.6 200.0 / 266.6
SaO2: 97
Physical Exam
-
General: Awake and AOx3
Cardiovascular: Regular rate & rhythm, Murmur and No Rub
Respiratory: Decreased Breath Sounds
Sternum: Stable
Incision: Clean, Dry and Intact
Extremities: Edema +1
Abdomen: soft, nondistended, nontender, + BM
Data Reviewed
-
Lab Results: Results Reviewed
Medications: Active Meds Reviewed
Chest X-Ray: Report Reviewed and Image Reviewed
ECG: Report Reviewed and Image Reviewed
[2024-05-17] MEDS: TYLENOL 1000 MG PO (05:39)
[2024-05-17] MEDS: NOVOLOG FLEXPEN-MODERATE RESISTANCE SC ×2 (07:46→12:20)
[2024-05-17 07:47] LABS: Glucose - Point of Care 145 mg/dl (70-99)
--- NOTE | 2024-05-17 07:56 | PN.DE.MGMTRT ---
Insulin Management
- -
05/17/2024: Diabetes management F/U:
74 year old male electively admitted 05/12 fo CABG due to two vessel CAD with preserved EF. PMH: MVCAD, HTN, HLD, T2DM, Glaucoma, Arthritis, Gout and Hard of hearing. Was taking Metformin 500mg BID and Glipizide 2.5mg daily. A1C 7.8%, Cr 0.7, eGFR
>60. States he has a working meter and monitors his blood sugars 3-4 times a day. 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 States pt has had DM for over 30 yrs and that he was recently
told that his Pancrease is starting to get worn out which is why he is now requiring more diabetes medications. Says they eat clean, mainly organic foods and that his blood sugar has always been in range during the day but tends to run high in the
morning. Pt was recently told to increase his Glipizide to BID but had significant GI SE from the BID dose so he was waiting to go back to his PCP to discuss. He has looked into Jardiance but it was cost prohibitive.
Pt is awake, alert, sitting up in chair, pleasant, offers no acute complaints, able to discuss diabetes management. -Shae at bedside
POD # 5 s/p CABG x2. Transitioned off Glycemic protocol on 05/14 to his OP regimen.
Glucose is stable and in range. 05/16 Premeal 214 to 181, FBG 129 (V), 145 POC this AM.
Will make no changes to current regimen: Farxiga 10 mg daily, Glipizide 5mg XL daily, Metformin 500mg XL BID and low corrective with meals.
reports that pt already has 1 month supply of Jardiance that was picked up prior to surgery.
Discussed OP DSME Classes and provided information and booklet. Pt expressed interest, encouraged to call and register for spring classes after cardiac rehab.
Will cont to follow. Pt has working glucose monitor at home
D/W wrapper caser and requested verification of co-pay for Farxiga/Jardiance and to notify pt and with information.
Diabetes History
- -
Type of Diabetes: 2
Pre-Admission Diabetes Regimen
05/17/24
03:25
Creatinine 0.9
Insulin Pump Settings
IP Diabetes Regimen
05/16/24 05/16/24 05/17/24
13:05 16:47 03:25
Glucose 129 H
POC Glucose 124 H 181 H
05/17/24
07:40
Glucose
POC Glucose 145 H
Meal type: Breakfast
Patient Education
[2024-05-17] MEDS: PROTONIX 40 MG PO (08:20)
[2024-05-17] MEDS: GLUCOPHAGE XR EXTENDED RELEASE 500 MG PO (08:20)
[2024-05-17] MEDS: PLAVIX 75 MG PO (08:21)
[2024-05-17] MEDS: NEURONTIN 100 MG PO (08:21)
[2024-05-17] MEDS: GLUCOTROL XL (EXTENDED RELEASE) 5 MG PO (08:21)
[2024-05-17] MEDS: SENOKOT-S 1 TABLET PO (08:21)
[2024-05-17] MEDS: VITAMIN D3 (cholecalciferol) 50 MCG PO (08:21)
[2024-05-17] MEDS: MUCINEX 1200 MG PO (08:21)
[2024-05-17] MEDS: FARXIGA 10 MG PO (08:21)
[2024-05-17] MEDS: LOPRESSOR 25 MG PO (08:22)
[2024-05-17] MEDS: LOW STRENGTH ASPIRIN 81 MG PO (08:22)
[2024-05-17] MEDS: VITAMIN C 500 MG PO (08:22)
[2024-05-17] MEDS: CRESTOR 20 MG PO (08:22)
[2024-05-17] MEDS: ZESTRIL 10 MG PO (08:22)
[2024-05-17] MEDS: PACERONE 200 MG PO (08:22)
[2024-05-17] MEDS: NSS IV (08:32)
[2024-05-17] MEDS: LIDOCAINE 4% PATCH TOPICAL (08:32)
--- NOTE | 2024-05-17 08:53 | PTCARENOTE ---
Patient received from hourly shift resting oob in chair, AAO X 3, states pain controlled at this time. NSR via cm, SaO2 @ 97% on RA. Amiodarone infusing per protocol in L AC. All procedural sites stable. Patient updated to plan of care for the day,
including possible d/c home, in agreement. See work list for full assessment and interventions performed.
--- NOTE | 2024-05-17 10:51 | CM ---
Reviewed chart.. Met with and Mrs. Aguirre. He states he is feeling well and maybe able to go home soon. We reviewed a home visit by the Transitional Care Nurse. He is agreeable to a home visit. Prior to admission he resides with his spouse in a
two story home with four steps to enter. He has a full flight of steps to get to bedroom/full bathroom. He has a powder room on the first floor. Prior to admission he was independent with ambulation and adls. He does not have any DME in the home.
He has a prescription plan with [facility]. His spouse will be home to assist in his care if needed. Medical work-up in progress. The discharge plan is to return home with his spouse and a home visit by the Transitional Care Nurse when
medically stable.
--- NOTE | 2024-05-17 11:33 | W.DCSUMMARY ---
Discharge Summary
Discharge Data
Date of Admission: 05/12/24
Date of Discharge: 05/17/24
-
Pending Results: No
Hospital Course
Primary care physician: Rosie Kirk PA-C
Outpatient rehab aide: Caleb Kerr MD
Inpatient consultants:
Procedures:
1. 05/12/24 CABG x2(FLEMING-LAD, SVG-RPDA), #35 ANJANA clip
Primary Diagnosis:
1. CAD
Secondary Diagnoses:
1. HLD
2. HTN
3. DMII
4. OA
5. cholelithiasis
6. OA
7. gout
HPI: This is a 74-year-old male who is otherwise healthy having angina equivalent chest tightness of the upper chest and neck. He was found to have multivessel coronary disease with a chronic total occlusion of the RCA with collateralization.
Given his diabetic status, he was referred to my office for consideration of coronary revascularization. We discussed his STS risk and the details of surgery. Shared decision making to move forward with coronary revascularization.
Hospital course:The patient was admitted via same-day admissions on May 12 taken to the OR and underwent coronary artery bypass grafting x [address] Rivera. He tolerated the procedure well and was transferred to the CVICU in stable condition. He
was extubated later that evening postop day 1 his vasoactive drugs were discontinued and the Aripeka-Devin catheter and arterial line were removed. Postop day 2 his temporary pacing wires and chest tubes were removed. He had a relatively uneventful
postoperative course except for on day 4 he developed atrial fibrillation which was converted to normal sinus rhythm with the use of Lopressor and amiodarone. He progressed nicely along the pathway and had no further episodes of atrial
fibrillation. It was felt that he could safely be discharged home on postop day 5. The patient was given explicit instructions on wound care and physical activity and diet. We will follow-up with him in the office as scheduled and he will see
cardiology as scheduled.
Home medication changes:
aspirin 81 mg tablet,delayed release 81 mg PO DAILY Blood Clot Prevention/Tx 03/26/17
coenzyme Q10 100 mg capsule 100 mg PO DAILY Supplement 03/26/17
lisinopril 10 mg tablet 10 mg PO DAILY Heart Failure 03/26/17
metformin 500 mg tablet,extended release 24hr (osmotic) 500 mg PO BID Diabetes 03/26/17
udsxmwgi-tjp-cphrp 200 mcg-lycop 175 mcg-lutei 250 mcg-herb 178 tablet (Justus Multivitamin For Men) 1 ea PO DAILY Supplement 03/26/17
omega 4-ogk-dnf-fish oil 300 mg-1,000 mg capsule (Fish Oil) 2 ea PO BID Supplement 03/26/17
cholecalciferol (vitamin D3) 50 mcg (2,000 unit) capsule (Vitamin D3) 50 mcg PO DAILY Supplement 05/05/24
latanoprost 0.005 % eye drops 1 drp ophthalmic (eye) QPM Eye Condition 05/05/24
rosuvastatin 10 mg tablet (Crestor) 20 mg (2 x 10 mg) PO DAILY #0 tabs 05/05/24
ascorbate calcium-bioflavonoid 1,000 mg-200 mg tablet (Malini-C with Bioflavonoids) 1 tab PO DAILY Supplement 05/08/24
magnesium glycinate 1 cap PO BID PRN for leg cramps 05/08/24
acetaminophen 325 mg tablet 650 mg (2 x 325 mg) PO Q4HPRN PRN mild pain,headache,temp >101F #0 tabs 05/17/24
amiodarone 200 mg tablet 200 mg PO BID #42 tabs 05/17/24
clopidogrel 75 mg tablet 75 mg PO DAILY #30 tabs 05/17/24
empagliflozin 10 mg tablet (Jardiance) 10 mg PO DAILY 05/17/24
glipizide 5 mg tablet, extended release 24 hr 5 mg PO DAILY #30 tabs 05/17/24
metoprolol succinate 25 mg tablet,extended release 24 hr 25 mg PO DAILY #30 tabs 05/17/24
oxycodone 5 mg tablet 5 mg PO Q4HPRN PRN moderate pain #28 tabs 05/17/24
Discharge Plan
-
Patient Disposition: Home (Routine Discharge)
Discharge Diagnosis/Procedures: CAD/CABG and left atrial appendage clip
Condition: Fair
Diet: Low Fat, Low Sodium and Diabetic, Carb Controlled
Activity: No strenuous activity
Driving Restrictions: Not until seen by your Dr
Bathing Restrictions: OK to Shower
Other Services: Cardiac Rehab
Specialty Instructions: Weigh Daily- Call MD for wt gain/loss 3 lbs overnight/5 lbs in 1 week
Activity Restrictions/Additional Instructions:
ACTIVITY:
-No strenuous activity: no heavy lifting, pushing, pulling anything over 15 pounds for one month
-continue to use stairs as tolerated
DRIVING RESTRICTIONS:
-No driving for one month or until approved by your surgeon
WOUND CARE:
-Shower daily. Use soap & water.
-No lotions, creams or powders on incision area.
DIET:
-continue a low fat/low cholesterol diet.
-IF you are diabetic, continue carb controlled diet.
CARDIAC REHAB:
-Please make appointment to start in 5-6 weeks with your local hospital program. (See Cardiac Rehabilitation Discharge Booklet).
SPECIALTY INSTRUCTIONS:
-Weigh yourself daily. Call your physician for any weight gain/loss of 3 lbs overnight or 5 lbs in one week.
-REPORT any clicking noise or uneven appearance of your sternum to your surgeon immediately.
-If you smoke, you are instructed to quit. The [place] smoking hotline phone number is [phone]
Referrals:
CT Transitional Care Nurse [Outside]
(
The Cardiothoracic Transitional Care Nurse will call you to set up a visit in 1-2 days.)
[facility]. Cardiac Rehab [Outside] - 06/20/24 1:00 pm
(Cardiac Rehab Orientation appointment and� First Exercise appointment is on 06/20/24 at 1 PM.
The Cardiac Rehab gym is located on the first floor of the [facility].)
Emma Ricci NP [Specified Professional Personl] - 06/19/24 10:20 am
Luis Rivera MD [Active] - 06/15/24 1:15 pm
UNKNOWN - PT NOT,INTERVIEWE [Unknown Provider] -
Additional Discharge Medication Instructions: Stop nitroglycerin tabs./coenzyme Q10/
Prescriptions:
New
glipizide 5 mg Tablet Extended Release 24hr
5 mg PO DAILY Qty: 30 2RF
acetaminophen 325 mg Tablet
650 mg PO Q4HPRN PRN (Reason: mild pain,headache,temp >101F ) Qty: 0 0RF
clopidogrel 75 mg Tablet
75 mg PO DAILY Qty: 30 2RF
metoprolol succinate 25 mg tablet extended release 24 hr
25 mg PO DAILY Qty: 30 2RF
amiodarone 200 mg Tablet
200 mg PO BID Qty: 42 1RF
Rx Instructions:
1 tab bid until 05/31 then 1 tab daily
oxycodone 5 mg Tablet
5 mg PO Q4HPRN PRN (Reason: moderate pain) Qty: 28 0RF
Continued
aspirin 81 MG tablet,delayed release (DR/EC)
81 mg PO DAILY
lisinopril 10 MG tablet
10 mg PO DAILY
coenzyme Q10 100 MG capsule
100 mg PO DAILY
metformin 500 MG tablet extended release 24hr
500 mg PO BID
omega 5-cgm-tnd-fish oil [Fish Oil] 1 EACH capsule
2 ea PO BID
Justus Multivitamin For Men 1 EACH tablet
1 ea PO DAILY
latanoprost 0.005 % Drops
1 drp OPHTHALMIC (EYE) QPM
cholecalciferol (vitamin D3) [Vitamin D3] 50 mcg (2,000 unit) Capsule
50 mcg PO DAILY
rosuvastatin [Crestor] 10 mg Tablet
20 mg PO DAILY Qty: 0 0RF
Malini-C with Bioflavonoids 1,000-200 mg Tablet
1 tab PO DAILY
magnesium glycinate 350 mg capsule
1 cap PO BID PRN (Reason: for leg cramps)
Jardiance 10 mg Tablet
10 mg PO DAILY
Discontinued
glipizide 2.5 mg Tablet Extended Release 24hr
2.5 mg PO DAILY
metoprolol succinate 25 mg Tablet Extended Release 24 Hr
12.5 mg PO QPM
nitroglycerin 0.4 mg tablet, sublingual
0.4 mg sublingual [id number] PRN (Reason: chest pain) Qty: 25 5RF
Patient Comments:
pt states never used
Discharge Orders:
Discharge Patient (As Directed); Ordered 05/17/24
Ordered By: Kee Tapia
Care Plan Goals
Care Plan Goals:
Problem: Readiness for enhanced knowledge related to diagnosis and treatment plan
Goal: Understand your diagnosis and treatment plan needs, including medications if applicable.
Instructions: Know your diagnosis, underlying causes and treatment plan options, including medications if applicable. Consult with your health care team to learn about your diagnosis and treatment plan, including medications if applicable.
Discharge Date and Time
Print Language: [place]
--- NOTE | 2024-05-17 11:34 | W.[place]-PDMP ---
[place]-PD[place]
-
Checked the [place]- Prescription Drug Monitoring Program website, no red flags identified; safe to proceed with prescription.
--- NOTE | 2024-05-17 11:36 | PTCARENOTE ---
VS obtained, assessment stable. Patient resting comfortably, at bedside. Ordering lunch, awaiting d/c orders.
[2024-05-17 12:20] LABS: Glucose - Point of Care 101 mg/dl (70-99)
--- NOTE | 2024-05-17 15:00 | PTCARENOTE ---
Patient set up to shower, completed independently. PIV removed. Discharge instructions thoroughly reviewed w/patient and spouse, all questions answered. Patient and all belongings transported to waiting vehicle for d/c home to private residence.
== END 2024-05-17 15:00 | disposition home or self-care (01) | DRG 235 ==
LOC: CVICU 05:30
PROVIDERS: Anesthesiology; Physician Assistant Medical; ADMITTING PHYSICIAN Thoracic Surgery (Cardiothoracic Vascular Surgery); CONSULT PHYSICIAN Internal Medicine; FAMILY PHYSICIAN Physician Assistant Medical
PROC: B24BZZ4 Ultrasonography of Heart with Aorta, Transesophageal (ICD-10-PCS; 2024-05-12)
PROC: 06BP4ZZ Excision of Right Saphenous Vein, Percutaneous Endoscopic Approach (ICD-10-PCS; 2024-05-12)
PROC: 02100Z9 Bypass Coronary Artery, One Artery from Left Internal Mammary, Open Approach (ICD-10-PCS; 2024-05-12)
PROC: 5A1221Z Performance of Cardiac Output, Continuous (ICD-10-PCS; 2024-05-12)
PROC: 02L70CK Occlusion of Left Atrial Appendage with Extraluminal Device, Open Approach (ICD-10-PCS; 2024-05-12)
PROC: 021009W Bypass Coronary Artery, One Artery from Aorta with Autologous Venous Tissue, Open Approach (ICD-10-PCS; 2024-05-12)
DX: I25.118 Atherosclerotic heart disease of native coronary artery with other forms of angina pectoris (principal); J95.1 Acute pulmonary insufficiency following thoracic surgery; D62 Acute posthemorrhagic anemia; J98.11 Atelectasis; I30.8 Other forms of acute pericarditis; I25.82 Chronic total occlusion of coronary artery; E78.00 Pure hypercholesterolemia, unspecified; E11.65 Type 2 diabetes mellitus with hyperglycemia; I48.91 Unspecified atrial fibrillation; H40.9 Unspecified glaucoma; I10 Essential (primary) hypertension; M10.9 Gout, unspecified; M19.90 Unspecified osteoarthritis, unspecified site; H91.93 Unspecified hearing loss, bilateral; E87.70 Fluid overload, unspecified; E86.1 Hypovolemia; Y83.2 Surgical operation with anastomosis, bypass or graft as the cause of abnormal reaction of the patient, or of later complication, without mention of misadventure at the time of the procedure; Z79.4 Long term (current) use of insulin; Z79.82 Long term (current) use of aspirin; Z79.899 Other long term (current) drug therapy; Z82.49 Family history of ischemic heart disease and other diseases of the circulatory system
CPT/HCPCS: 36415; 71045; 71046; 71250; 80048; 80053; 81003; 82248; 82330; 82565; 82805; 82810; 82947; 82962; 83735; 84132; 84302; 84520; 85014; 85018; 85025; 85027; 85049; 85610; 85730; 86850; 86900; 86901; 86920; 87070; 93005; 93306; 93312; 93320; 93325; 93880; 94002; J2916

== ENCOUNTER 2024-07-14 08:56 | Outpatient (RCR) | payer MEDICARE, OTHER, SELFPAY ==
[2024-06-20 15:05] LABS: Glucose - Point of Care 118 mg/dl (70-99)
[2024-06-20 15:50] LABS: Glucose - Point of Care 107 mg/dl (70-99)
[2024-06-23 08:09] LABS: Glucose - Point of Care 224 mg/dl (70-99)
[2024-06-23 09:04] LABS: Glucose - Point of Care 169 mg/dl (70-99)
[2024-06-26 08:23] LABS: Glucose - Point of Care 336 mg/dl (70-99)
[2024-06-28 08:13] LABS: Glucose - Point of Care 118 mg/dl (70-99)
[2024-06-28 09:05] LABS: Glucose - Point of Care 109 mg/dl (70-99)
[2024-06-30 11:13] LABS: Glucose - Point of Care 117 mg/dl (70-99)
[2024-06-30 12:05] LABS: Glucose - Point of Care 95 mg/dl (70-99)
[2024-07-05 08:17] LABS: Glucose - Point of Care 117 mg/dl (70-99)
[2024-07-05 09:14] LABS: Glucose - Point of Care 87 mg/dl (70-99)
[2024-07-07 08:08] LABS: Glucose - Point of Care 120 mg/dl (70-99)
[2024-07-07 09:05] LABS: Glucose - Point of Care 93 mg/dl (70-99)
[2024-07-10 08:09] LABS: Glucose - Point of Care 151 mg/dl (70-99)
[2024-07-10 09:00] LABS: Glucose - Point of Care 107 mg/dl (70-99)
[2024-07-12 08:15] LABS: Glucose - Point of Care 176 mg/dl (70-99)
[2024-07-12 09:08] LABS: Glucose - Point of Care 107 mg/dl (70-99)
[2024-07-14 08:10] LABS: Glucose - Point of Care 181 mg/dl (70-99)
== END 2024-07-14 23:59 | disposition home or self-care (01) ==
LOC: CRHB 08:56
PROVIDERS: ATTENDING PHYSICIAN Internal Medicine
DX: I25.10 Atherosclerotic heart disease of native coronary artery without angina pectoris (principal); Z95.1 Presence of aortocoronary bypass graft
CPT/HCPCS: 82962; G0422; G0423

== ENCOUNTER → 2024-08-07 08:10 | Outpatient (REF) | payer MEDICARE, OTHER, SELFPAY ==
--- NOTE | 2024-07-21 15:07 | PN.DIAED02 ---
Referral
DSME Class Series Code: [id number]
Referred For: Diabetes Self-Management Training, Medical Nutrition Therapy, Self-Blood Glucose Monitoring, Long-Term Complication Instruction, Accute Complication Instruction, Continuous Glucose Monitoring, Medication management, Insulin
Instruction, Care Coordination, Disease Management
PHI Release Authorization Form Signed: Yes
Demographic
(1) Type 2 diabetes mellitus with other circulatory complications
Status: Acute Code(s): E11.59 - Type 2 diabetes mellitus with other circulatory complications
Patient's primary language-: Irish
Education: Some college
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
- Social
Primary Support Person: Self
Primary Care Takers: Self
Living Arrangements: Self & spouse, Family
- Learning Methods
Preferred Method: Reading, Lecture/audio, Hands-on demonstration, Video
Barriers to Learning: None
Glycemic Control
- Blood Glucose Monitoring Assessment
Date: 07/20/24 (148 mg/dL)
Blood glucose monitoring at home: Yes
Monitor Brands: Other ([employer])
Frequency: 4x per day
- Hypoglycemia Assessment
Patient carries glucose source: No
Patient experiences hypoglycemia: Yes
Frequency: rarely
Patient has required treatment by others: No
History of Hypoglycemia Unawareness: No (reviewed hypoglycemia recognition & treatment)
- Blood Glucose Monitoring Results
Source: log book
- Hemoglobin A1c
Date: 07/20/24
A1C Percentage (%): 7
Medical History of Diabetes
Family Diabetes History: Mother, Father
Previous Diabetes Education: No
Previous visit with Dietitian: Yes (met with Giovanna in cardiac rehab)
How long ago?: < 1 mo. ago
Complications/Comorbidity/Specialist: Glaucoma (diagnosed at --latanoprost 0.005 % 1 drop daily), Heart Disease (Coenzyme Q10 100 mg daily, Emmalena 3 DHA, ASA 81 mg), Hypertension (lisinopril 10 mg daily, metropolol 25 mg daily, ), Hyperlipidemia
(Crestor 20 mg daily, Plavix 75 mg daily)
Measures
- Anthropometrics
Height: 5 ft 8 in
Actual Weight: 158 lb
- Blood Pressure / Pulse
Blood pressure: 138/78
- Diabetes Management
Medical Management for Diabetes: Complete physical exam (04/24/2024), Dental exam (02/17/24), Dilated eye exam (04/03/24)
Self-Care
- Tobacco Usage
Do you now, or have you ever smoked?: Never smoked
- Meals & Dining
Meals & Dining: Patient skips meals: No, Food Intolerance / Allergy: No, Cultural / [employer] Dietary Needs: No
Primary Food Chair Trimmer: Self
Primary Carton Making Machine Operator: Self
Dining Out Frequency: Never
- Physical Activity
Physical Limitation: Yes (cardiac rehab 3 times per week)
Patient participates in physical Activity: Yes
Activity Types: Cardiac rehab, walking
- Self Foot-Care
Foot Problems: None
- Patient-Self Assessment
Diabetes Knowledge: Good
Feelings About Diabetes: Adaptation
General Health: Good
Importance of Health: Extremely
Stress Level: Low
Diabetes Interferes With:: Nothing
Barriers to Diabetes Management: Nothing
Depression Survey Score: 0
- Diabetes Identification
Diabetes Identification Information Provided: Yes
Care Plan
- Education Needs
Patient Education Needs: Diabetes disease process, Chronic complications, Acute complications, Medication, Monitoring, Physical activity, Psychosocial Adjustment, Goal setting & problem solving
Recommended Diabetes Training Program based on assessment: Outpatient Diabetes Education Program
- Plan of Care
Plan of Care:
Ronni presented with his for the initial assessment for the July DSME course. He has had diabetes for 30 years and recently had open heart surgery in April,. He restarted Jardiance 10 mg in (05/07) and in addition takes; Metformin
500 mg and glipizide 5 mg daily. He is currently in cardiac rehab 3x/week and met with Giovanna (director of dietary) who recommended they attend the program. Ronni monitors his glucose level at home 3 to 4 times daily and is increasing his activity level since
having surgery. Pre-surgery he was very active with hiking and walking. We reviewed recognition and treatment of hypoglycemia as he states he has lower glucose levels after exercise.Ronni and his will attend the daytime course and I encouraged
him to reach out to the office with any concerns.
--- NOTE | 2024-07-21 15:50 | PN.DIAED04 ---
Education Record
- Education Record
Class Attended: Other (initial DSME assessment)
DSME Class Series Code: [id number]
Instructor: Nurse Practitioner (CONRADO Eastman)
Pre-Program Knowledge: Needs review / Assistance
Pre-Test Score (%): 82
Goals
- Goal 1
Being Active: Exercise 30 minutes-5 times per week
Goals To Be Evaluated: Exercise 30 mins-5x/week
- Goal 2
Healthy Eating: Make better food choices, Follow meal plan
Goals To Be Evaluated: Make better food choices. Follow meal plan
- Goal 3
Monitoring: Check blood sugar 4x daily-b4 breakfast/b4 lunch/b4 dinner/at bedtime
Goals To Be Evaluated: Check blood sugar 4x/day
--- NOTE | 2024-08-09 11:58 | PN.DIAED14 ---
This is to notify you that your patient with diabetes, JUAN RICHARDSON ( 1950), has enrolled in our diabetes self-management classes that are being held at [facility].
These classes will include an introduction to diabetes, diet, medication, exercise and prevention of complications. At the end of our class series, you will receive a report of your patient's participation and progress for your records.
Please contact me at the Diabetes Center, , if there is any particular information regarding your patient that might be helpful to me.
Sincerely,
Eliel CAMP-PATSY,[facility]
--- NOTE | 2024-08-09 11:58 | PN.DIAED04 ---
Education Record
- Education Record
Class Attended: Class 1
DSME Class Series Code: [id number]
Instructor: Nurse Practitioner (CONRADO Eastman)
Class Curriculum:
Outpatient Diabetes Education Program:
Class 1 (120 minutes)
Describe the diabetes disease process and treatment options
Diabetes management
Develop personal strategies to promote health and behavior change
Integrate psychosocial adjustment for daily living
Monitor blood glucose and other parameters. Interpret and use the results for self-management decision making
Prevent, detect, and treat acute complications
Class Length (mins): 120
Post-Class 1 Test Score (%): 94
== END ==
LOC: DES 08:10
PROVIDERS: ATTENDING PHYSICIAN Physician Assistant Medical
DX: E11.59 Type 2 diabetes mellitus with other circulatory complications (principal)
CPT/HCPCS: 99078

== ENCOUNTER 2024-08-11 08:43 | Outpatient (RCR) | payer MEDICARE, OTHER, SELFPAY | END 2024-08-11 23:59 | disposition home or self-care (01) | LOC: CRHB 08:43 | PROVIDERS: ATTENDING PHYSICIAN Internal Medicine | DX: I25.10 Atherosclerotic heart disease of native coronary artery without angina pectoris (principal); Z95.1 Presence of aortocoronary bypass graft (principal) | CPT/HCPCS: G0422; G0423 ==

== ENCOUNTER → 2024-08-14 08:52 | Outpatient (REF) | payer MEDICARE, OTHER, SELFPAY ==
--- NOTE | 2024-08-15 15:35 | PN.DIAED04 ---
Education Record
- Education Record
Class Attended: Class 2
DSME Class Series Code: [id number]
Instructor: Registered Dietitian (Goldie Wilcox, RD, LDN, CDE)
Class Curriculum:
Outpatient Diabetes Education Program:
Class 2 (120 minutes)
Incorporate nutritional management into lifestyle
Understanding nutritional value
Understanding carbohydrate counting
Class Length (mins): 120
== END ==
LOC: DES 08:52
PROVIDERS: ATTENDING PHYSICIAN Physician Assistant Medical
DX: E11.59 Type 2 diabetes mellitus with other circulatory complications (principal)
CPT/HCPCS: 99078

== ENCOUNTER → 2024-08-21 08:10 | Outpatient (REF) | payer MEDICARE, OTHER, SELFPAY ==
--- NOTE | 2024-08-22 09:00 | PN.DIAED04 ---
Education Record
- Education Record
Class Attended: Class 3
DSME Class Series Code: [id number]
Instructor: Registered Dietitian (Goldie Wilcox, RD, LDN, CDE)
Class Curriculum:
Outpatient Diabetes Education Program:
Class 3 (120 minutes)
Incorporate nutritional management into lifestyle
Class Length (mins): 120
Post-Class 2 & 3 Test Score (%): 100
== END ==
LOC: DES 08:10
PROVIDERS: ATTENDING PHYSICIAN Physician Assistant Medical
DX: E11.59 Type 2 diabetes mellitus with other circulatory complications (principal)
CPT/HCPCS: 99078

== ENCOUNTER → 2024-08-28 07:58 | Outpatient (REF) | payer MEDICARE, OTHER, SELFPAY ==
--- NOTE | 2024-08-29 08:23 | PN.DIAED04 ---
Education Record
- Education Record
Class Attended: Class 4
DSME Class Series Code: [id number]
Instructor: Nurse Practitioner (CONRADO Eastman)
Class Curriculum:
Outpatient Diabetes Education Program:
Class 4 (120 minutes)
Develop personal strategies to promote health and behavior change
Incorporate physical activity into lifestyle
Utilize medications safety for maximum therapeutic effectiveness
Understand different medication/insulin mechanism of action
Preparing for travel
Class Length (mins): 120
Post-Class 4 Test Score (%): 100
== END ==
LOC: DES 07:58
PROVIDERS: ATTENDING PHYSICIAN Physician Assistant Medical
DX: E11.59 Type 2 diabetes mellitus with other circulatory complications (principal)
CPT/HCPCS: 99078

== ENCOUNTER → 2024-09-04 09:28 | Outpatient (REF) | payer MEDICARE, OTHER, SELFPAY ==
--- NOTE | 2024-09-06 14:11 | PN.DIAED04 ---
Education Record
- Education Record
Class Attended: Class 5
DSME Class Series Code: [id number]
Instructor: Nurse Practitioner (CONRADO Eastman)
Class Curriculum:
Outpatient Diabetes Education Program:
Class 5 (120 minutes)
Prevent, detect, and treat acute complications
Prevent, detect, and treat chronic complications through risk reduction
Develop personal strategies to address psychosocial issues and concerns
Development of diabetes self-management support plan
Letter to physician with DSMS plan attached sent
Class Length (mins): 120
Post-Program Knowledge: Demonstrates competency
Post-Test Score (%): 90
Post-Program Assessment
- Post-Program Assessment
Actual Weight: 157 lb
Blood pressure: 128/68
Post-Program Depression Survey Score: 1
Reviewing Previous Goals?: Yes
Pre-Program Depression Survey Score: 0
- Goals 1 Evaluation
Goals To Be Evaluated: Exercise 30 mins-5x/week
- Goals 2 Evaluation
Goals To Be Evaluated: Make better food choices. Follow meal plan
- Goals 3 Evaluation
Goals To Be Evaluated: Check blood sugar 4x/day
--- NOTE | 2024-09-06 14:15 | PN.DIAED16 ---
This is to notify you that your patient with diabetes, JUAN RICHARDSON ( 1950), has attended the entire series of Diabetes Self-Management Education Classes.
Class 1 (120 minutes): Diabetes Overview - monitoring, stress/psychosocial adjustment, support, goal setting
Class 2 (120 minutes): Meal Planning - serving sizes, menu plans
Class 3 (120 minutes): Introduction to Carbohydrate Counting, Analyzing Food Labels
Class 4 (120 minutes): Medication, Exercise and Activity
Class 5 (120 minutes): Sick Day Management, Strategies to Reduce Complications, Problem Solving, Resources
The following behavioral goals were identified:
Exercise 30 mins-5x/week
Make better food choices
Follow meal plan
Check blood sugar 4x/day
A follow-up call will be made within three to six months to evaluate attainment of these goals and to check post-program Hemoglobin A1c and overall progress. All class participants are encouraged to contact me if I can be any further assistance in
learning how to manage their diabetes.
Sincerely,
Eliel CAMP-, [facility]
== END ==
LOC: DES 09:28
PROVIDERS: ATTENDING PHYSICIAN Physician Assistant Medical
DX: E11.59 Type 2 diabetes mellitus with other circulatory complications (principal)
CPT/HCPCS: 99078

== ENCOUNTER 2024-09-11 08:43 | Outpatient (RCR) | payer MEDICARE, OTHER, SELFPAY | END 2024-09-11 23:59 | disposition home or self-care (01) | LOC: CRHB 08:43 | PROVIDERS: ATTENDING PHYSICIAN Internal Medicine | DX: I25.10 Atherosclerotic heart disease of native coronary artery without angina pectoris (principal); Z95.1 Presence of aortocoronary bypass graft | CPT/HCPCS: G0422; G0423 ==

== ENCOUNTER 2024-09-15 07:30 | Outpatient (RCR) | payer MEDICARE, OTHER, SELFPAY | END 2024-09-15 23:59 | disposition home or self-care (01) | LOC: CRHB 07:30 | PROVIDERS: ATTENDING PHYSICIAN Internal Medicine; FAMILY PHYSICIAN Physician Assistant Medical | DX: I25.10 Atherosclerotic heart disease of native coronary artery without angina pectoris (principal); Z95.1 Presence of aortocoronary bypass graft (principal) | CPT/HCPCS: G0422; G0423 ==

== ENCOUNTER → 2024-11-23 15:33 | Outpatient (REF) | payer MEDICARE, OTHER, SELFPAY | LOC: RCS 15:33 | PROVIDERS: ATTENDING PHYSICIAN Internal Medicine; FAMILY PHYSICIAN Physician Assistant Medical | DX: I25.10 Atherosclerotic heart disease of native coronary artery without angina pectoris (principal); I10 Essential (primary) hypertension; I35.8 Other nonrheumatic aortic valve disorders; Z95.1 Presence of aortocoronary bypass graft | CPT/HCPCS: 93306 ==